=== PATIENT | male | born 1945 | race Caucasian/White ===

== ENCOUNTER 2017-12-07 10:54 | Outpatient (CLI) | payer MEDICARE, BC ==
--- NOTE | 2017-12-07 11:55 | ULT ---
GALLBLADDER ULTRASOUND: HISTORY: Right upper quadrant pain. FINDINGS: Real-time imaging of the right upper quadrant was performed. This shows a normal-appearing gallbladd er. The common duct is 3 mm. The technologist reports a negative ultrasound Forbes's sign. The zehra er is slightly enlarged measuring approximately 19.6 cm in length. No focal lesion is demonstrated. The pancreas is obscured. The right kidney is normal in size and not obstructed. IMPRESSION: Mildly enlarged-appearing liver. No focal lesions. POS: [facility]
== END 2017-12-07 10:55 | disposition home or self-care (01) ==
LOC: SCSULT 10:54
PROVIDERS: ATTEND Family Medicine
DX: R10.11 Right upper quadrant pain (principal); R16.0 Hepatomegaly, not elsewhere classified
CPT/HCPCS: 76705

== ENCOUNTER 2018-01-03 10:10 | Outpatient (CLI) | payer MEDICARE, BC ==
--- NOTE | 2018-01-03 12:08 | RAD ---
TWO VIEWS CHEST: Comparison: 01-29-15, 06-07-16. CT thorax 05-13-14 History: Cough. FINDINGS: Two views of the chest shows a normal sized cardiomediastinal silhouette. There is a 1.2 cm area of n odularity projecting over the right upper lobe. This likely represents a small nodule seen on prior C T, which has enlarged. No pleural effusion is seen. Degenerative changes are seen in the spine. IMPRESSION: Enlarging right upper lobe pulmonary nodule. A CT of the chest with contrast is recommended for [facility] er evaluation. POS: [facility]
== END 2018-01-03 10:11 | disposition home or self-care (01) ==
LOC: BICRAD 10:10
PROVIDERS: ATTEND Family Medicine
DX: R05 Cough (principal); R91.1 Solitary pulmonary nodule
CPT/HCPCS: 71046

== ENCOUNTER 2018-01-03 22:10 | Emergency (ER) | payer MEDICARE, BC ==
[2018-01-03 23:01] LABS: ALT (SGPT) Less than 7 U/L (8-55); AST (SGOT) 15 U/L (5-34); Albumin 3.9 g/dL (3.4-4.8); Alkaline Phosphatase 75 U/L (40-150); Anion Gap 12 mmol/L (10-20); BUN (Urea Nitrogen) 18 mg/dL (8.4-25.7); Bilirubin, Total 2.5 mg/dL (0.2-1.2); CK (CPK) 89 U/L (30-200); Calc. Creatinine Clearance 0 mL/min (70-130); Carbon Dioxide 25 mmol/L (23-31); Chloride 104 mmol/L (98-107); Estimated GFR-MDRD 87; Globulin 3.4 g/dL (2.4-3.5); Glucose 139 mg/dL (83-110); Potassium 3.8 mmol/L (3.5-5.1); Protein, Total 7.3 g/dL (5.8-8.1); Sodium 137 mmol/L (136-145)
--- NOTE | 2018-01-03 23:15 | RAD ---
PORTABLE AP CHEST X-RAY 01/03/18 HISTORY: Shortness of breath. COMPARISON: 01/03/18 at 1033 hours. FINDINGS: Cardiac silhouette is magnified by projection but stable in size. The pulmonary nodule overlying the right upper lobe is again seen but less discrete on this exam. The lungs are otherwise clear. Vascula r calcifications seen in the thoracic aorta. Degenerative changes are noted in the spine. No other in terval change. IMPRESSION: 1. Right upper lobe pulmonary nodule is again seen but less distinct on this exam. CT scan exami nation was recommended on study obtained earlier on today's date. 2. No acute cardiopulmonary process. Chest is overall stable from prior exam. POS: [facility]
[2018-01-03 23:30] LABS: #Basophils 0.1 thou/uL (0.0-0.2); #Eosinphils 0.3 thou/uL (0.0-0.7); #Lymphocytes 0.8 thou/uL (1.20-3.40); #Monocytes 1.1 thou/uL (0.11-0.59); #Neutrophils 8.1 thou/uL (1.40-6.50); %Basophils 0.6 % (0.0-1.0); %Eosinophils 3.1 % (0.0-10.0); %Lymphocytes 8.1 % (21.0-51.0); %Monocytes 10.1 % (0.0-10.0); %Neutrophils 78.1 % (42.0-75.0); Hemoglobin 14.1 g/dL (14.0-18.0); Mean Corpuscular HGB CONC 30.9 g/dL (32.0-36.0); Mean Corpuscular Hemoglobin 25.3 pg (27.0-31.0); Mean Corpuscular Volume 81.8 fL (78.0-98.0); Mean Platelet Volume 8.2 fL (7.4-10.4); Platelet Count 137 thou/uL (130-400); RBC Distribution Width 13.9 % (11.5-14.5); Red Blood Cell (RBC) Count 5.58 mill/uL (4.70-6.10); White Blood Cell (WBC) Count 10.4 thou/uL (4.8-10.8)
[2018-01-04 00:42] LABS: Bilirubin Negative (Negative); Blood, Urine Negative (Negative); Clarity CLEAR (Clear); Glucose, Urine (Dipstick) Negative (Negative); Leukocyte Negative (Negative); Nitrite Negative (Negative); Protein, Urine (Dipstick) Trace mg/dL (Neg-Trace); Specific Gravity, Urine 1.018 (1.002-1.036); pH, Urine 5.5 (5.0-9.0)
== END 2018-01-04 00:36 | disposition home or self-care (01) ==
LOC: ERS 22:10
DX: J06.9 Acute upper respiratory infection, unspecified (principal); I10 Essential (primary) hypertension; Z87.891 Personal history of nicotine dependence; Z79.899 Other long term (current) drug therapy
CPT/HCPCS: 71045; 71046; 80053; 81003; 82550; 83605; 85025; 87040; 87804; 93005; 94660; 96360; 96361; J7620

== ENCOUNTER 2018-01-09 08:17 | Outpatient (CLI) | payer MEDICARE, BC ==
[2018-01-09] MEDS ORDERED: Iopamidol 300 61% 100 ML VIAL FS ONE (09:00)
--- NOTE | 2018-01-09 11:19 | CT ---
CT CHEST WITH IV CONTRAST: HISTORY: Abnormal chest radiograph of 01/03/2018. FINDINGS: There is a questionable nodular enhancement in the region of the posterior inferior right lobe of the thyroid gland measuring about 8 mm. It cannot be said with certainty if this is part of the normal thyroid lobe parenchyma or an enhancing parathyroid adenoma. Enlarged lymph nodes are seen in the mediastinum measuring about 16 mm in the right paratracheal mala on and 12 mm in the subcarinal region. A 13 mm lymph node is also seen in the right hilum. There is an 11 mm peripheral parenchymal lung nodule in the posterior aspect of the right upper lobe. Other smaller lung nodules are seen measuring 3-4 mm in the right upper lobe, 5 mm in the left uppe r lobe, and 6 mm in the right lower lobe. Coronary and aortic calcifications are present without evidence of thoracic aortic aneurysm. No pleu ral or pericardial effusions are identified. There are degenerative changes in the spine. Upper abdominal tomograms demonstrate a 10 cm exophytic cyst arising from the left kidney. IMPRESSION: 1. An 11 mm right upper lobe lung nodule with mediastinal and right hilar lymphadenopathy. Further evaluation with PET scan is recommended. 2. Nonspecific subcentimeter lung nodules. 3. Question right parathyroid adenoma. Correlation with parathyroid hormone levels is recommended. 4. Large left renal cyst. CODE T POS: [facility]
== END 2018-01-09 08:18 | disposition home or self-care (01) ==
LOC: SCSCT 08:17
PROVIDERS: ATTEND Family Medicine
DX: R91.8 Other nonspecific abnormal finding of lung field (principal); R59.0 Localized enlarged lymph nodes; N28.1 Cyst of kidney, acquired; N40.1 Benign prostatic hyperplasia with lower urinary tract symptoms; R31.29 Other microscopic hematuria
CPT/HCPCS: 36415; 71260; 80048; 81001; 87086; 88112

== ENCOUNTER 2019-09-05 10:49 | Observation (INO) | payer MEDICARE, BC, OTHER ==
[2019-09-05 11:41] LABS: #Eosinphils 0.1 thou/uL (0.0-0.7); #Monocytes 0.9 thou/uL (0.11-0.59); #Neutrophils 6.4 thou/uL (1.40-6.50); %Basophils 0.4 % (0.0-1.0); %Eosinophils 0.9 % (0.0-10.0); %Lymphocytes 11.8 % (21.0-51.0); %Monocytes 10.4 % (0.0-10.0); %Neutrophils 76.5 % (42.0-75.0); Mean Corpuscular Hemoglobin 24.8 pg (27.0-31.0); Mean Corpuscular Volume 77.4 fL (78.0-98.0); Mean Platelet Volume 8.8 fL (7.4-10.4); Platelet Count 142 thou/uL (130-400); Red Blood Cell (RBC) Count 4.83 mill/uL (4.70-6.10); White Blood Cell (WBC) Count 8.3 thou/uL (4.8-10.8)
--- NOTE | 2019-09-05 11:48 | RAD ---
EXAM: Single view of the chest HISTORY: Chest pain COMPARISON: 01/03/2018 FINDINGS: Single view of the chest shows an enlarged but stable cardiomediastinal silhouette. Athero sclerotic calcifications are seen in the aorta. There is no evidence of consolidation, mass, or pleural effusion. The bones are unremarkable. IMPRESSION: No evidence of acute cardiopulmonary disease
[2019-09-05 12:06] LABS: ALT (SGPT) Less than 7 U/L (8-55); AST (SGOT) 16 U/L (5-34); Albumin 3.5 g/dL (3.4-4.8); Alkaline Phosphatase 105 U/L (40-110); Anion Gap 12 mmol/L (10-20); BUN (Urea Nitrogen) 14 mg/dL (8.4-25.7); Bilirubin, Total 1.3 mg/dL (0.2-1.2); CK (CPK) 23 U/L (30-200); Calc. Creatinine Clearance 0 mL/min (70-130); Calcium 8.9 mg/dL (7.8-10.44); Carbon Dioxide 23 mmol/L (23-31); Chloride 107 mmol/L (98-107); Estimated GFR-MDRD Greater than 90; Globulin 3.4 g/dL (2.4-3.5); Glucose 125 mg/dL (83-110); Lipase 16 U/L (8-78); Potassium 3.9 mmol/L (3.5-5.1); Protein, Total 6.9 g/dL (5.8-8.1); Sodium 138 mmol/L (136-145)
[2019-09-05] MEDS ORDERED: Aspirin Chewable 81 MG TAB ONE (13:08)
[2019-09-05] MEDS ORDERED: Acetaminophen 325 MG TAB PO PRN (18:44)
[2019-09-05] MEDS ORDERED: hydrALAZINE 20 MG/ML VIAL SLOW IVP PRN (18:53)
[2019-09-05] MEDS ORDERED: Ondansetron ODT 4 MG TAB PO PRN (18:53)
[2019-09-05] MEDS ORDERED: Ondansetron PF 4 MG/2 ML Vial IVP PRN (18:53)
[2019-09-05] MEDS ORDERED: Acetaminophen 500 MG TAB PO PRN (18:53)
[2019-09-05 19:40] LABS: Troponin I 0.016 ng/mL (< 0.028)
[2019-09-05 20:37] VITALS: BMI 36.3
[2019-09-05 21:50] LABS: Troponin I 0.015 ng/mL (< 0.028)
--- NOTE | 2019-09-05 23:13 | HP ---
PRIMARY CARE PROVIDER: Ti Marina MD PRIMARY SLEEPING ROOM CLEANER: Giselle Corcoran MD CHIEF COMPLAINT: Chest pain and shortness of breath. HISTORY OF PRESENT ILLNESS: This is a 73-year-old male, who presented to [facility] complaining of less than 1-day history of central chest pain and pressure with associated shortness of breath, which woke him from sleep at approximately 5:00 a.m. The patient denied any prior similar events and no known history of coronary artery disease. The patient states he has undergone stress testing in the past but is unclear of the year, but states he had normal results. The patient does admit to history of atrial fibrillation, controlled with medication on chronic anticoagulation with Eliquis. The patient states the pain lasted for several minutes and became unbearable at which point, he notified EMS personnel. The patient denied any direct trauma, injury, nausea, vomiting, or diarrhea. The patient denied any fever or chills. The patient does admit to some shortness of breath noticeable over the last 24 to 48 hours. The patient does state that he recently traveled to [place] with his for a vacation at a [employer], which opened recently. The patient states he was wearing his mask per protocol and denied any direct exposure with COVID contacts. The patient denied any prominent cough or purulent sputum. In the emergency room, the patient underwent general evaluation, receiving aspirin 162 mg x1 dose. Initial cardiac enzymes were negative x1 and patient exhibited no acute EKG changes. The patient was referred to the observation unit for further evaluation. PAST MEDICAL HISTORY: 1. Chronic atrial fibrillation, on chronic anticoagulation with Eliquis. 2. Obstructive sleep apnea with nocturnal CPAP x15 years. 3. Hypertension. 4. Colon polyps. PAST SURGICAL HISTORY: 1. Status post hydrocele resection. 2. Status post knee surgery. 3. Status post bilateral hand surgery. 4. Status post colonoscopy with excision of multiple polyps. CURRENT MEDICATIONS: 1. Carvedilol 25 mg 2 tablets p.o. b.i.d. 2. Hydralazine 100 mg p.o. t.i.d. 3. Eliquis 5 mg p.o. b.i.d. 4. Potassium chloride 8 mEq two tablets p.o. daily. 5. Lasix 40 mg p.o. daily. 6. Olmesartan 40 mg p.o. daily. ALLERGIES: NO KNOWN DRUG ALLERGIES. FAMILY HISTORY: Positive for hypertension and coronary artery disease. SOCIAL HISTORY: . Resides in the [facility] area. Retired. Functional of all activities of daily living. No current alcohol, tobacco, or illicit drug use. Quit smoking greater than 10 years prior to this evaluation. REVIEW OF SYSTEMS: CONSTITUTIONAL: Negative for weight loss or gain, ability to conduct usual activities. SKIN: Negative for rash, itching. EYES: Negative for double vision, pain. ENT/MOUTH: Negative for nose bleeding, neck stiffness, pain, tenderness. CARDIOVASCULAR: Negative for palpitations, dyspnea on exertion, orthopnea. RESPIRATORY: Negative for shortness of breath, wheezing, cough, hemoptysis, fever or night sweats. GASTROINTESTINAL: Negative for poor appetite, abdominal pain, heartburn, nausea, vomiting, constipation, or diarrhea. GENITOURINARY: Negative for urgency, frequency, dysuria, nocturia. MUSCULOSKELETAL: Negative for pain, swelling. NEUROLOGIC/PSYCHIATRIC: Negative for anxiety, depression. ALLERGY/IMMUNOLOGIC: Negative for skin rash, bleeding tendency. Otherwise negative except as stated per HPI. PHYSICAL EXAMINATION: VITAL SIGNS: Blood pressure 173/89, pulse 88, respiratory rate 16, temperature 98.4 degrees Fahrenheit, O2 saturation 98% on room air. GENERAL APPEARANCE: This is a 73-year-old male, alert and oriented x3, pleasant, responsive, in no acute distress. HEENT: Pupils are equal, round, reactive to light and accommodation. Extraocular muscles are intact. No scleral icterus. No conjunctival injection. Nares are patent. OP is clear. Teeth in good repair. NECK: Supple. No cervical adenopathy. No thyromegaly. No carotid bruits. No JVD appreciated. Cervical spine with full active and passive range of motion. No meningeal signs noted. CHEST: Diminished breath sounds in the bases bilaterally without wheeze or rhonchi. CARDIOVASCULAR: S1 and S2 with distant heart sounds. Irregular rate and rhythm noted. ABDOMEN: Obese, soft, nontender, and nondistended. Bowel sounds are positive in all 4 quadrants. There is no hepatosplenomegaly. No abdominal bruits. No rebound or guarding appreciated. EXTREMITIES: Warm and dry with fair turgor. No clubbing, cyanosis, or asymmetric edema appreciated. Pulses palpable distally at the dorsalis pedis, posterior tibial, and popliteal arteries bilaterally. Capillary refill less than 2 seconds. NEUROLOGIC: Cranial nerves 2 through 12 are grossly intact. No focal or lateralizing signs appreciated. PERTINENT LABORATORY AND X-RAY FINDINGS: Sodium 138, potassium 3.9, chloride 107, CO2 of 23, BUN 14, creatinine 0.81, glucose 125, calcium 8.9, total bilirubin 1.3, AST 16, ALT less than 7, alkaline phosphatase 105, total CK of 23, lipase 16. CBC showed a white blood cell count 8.3, hemoglobin 12, hematocrit 37, MCV 77, platelet count 142 with 77% neutrophils. Portable chest x-ray dated 09/05/2019, showed no acute cardiopulmonary process. EKG dated 09/05/2019, by my interpretation shows atrial fibrillation with controlled rate in the 80s. Attenuated R-waves noted in the precordial leads. Left axis deviation. No acute ST-T wave changes appreciated. ASSESSMENT AND PLAN: 1. Chest pain. The patient will be observed on the telemetry unit. We will continue serial cardiac biomarkers x3. We will proceed with Cardiolite stress testing in the a.m. after ruling out enzymatically. Check fasting lipid profile in the a.m. Continue aspirin 81 mg daily. 2. Chronic atrial fibrillation. Rate controlled currently. Continue Eliquis 5 mg p.o. b.i.d. Continue Coreg 50 mg p.o. b.i.d. 3. Hypertension. Continue home blood pressure regimen including carvedilol, hydralazine, Lasix, and Olmesartan. Serial blood pressure monitoring. 4. Chronic anticoagulation. Continue Eliquis 5 mg p.o. b.i.d. 5. COVID-19 rule out. Isolation per protocol. COVID-19 PCR pending. 6. Prophylaxis. SCDs while in bed. Pepcid 20 mg p.o. b.i.d. 7. Code status is full. Surrogate medical decision maker is the patient's spouse. Job ID: [id number]
[2019-09-06] MEDS ORDERED: Ketorolac Tromethamine 30 MG/ML VIAL IVP SCH (00:45)
[2019-09-06 05:34] LABS: Cardiac Risk 2.9 (Less than 4.5)
[2019-09-06] MEDS ORDERED: Aspirin 325 mg Enteric Coated Tablet PO SCH (09:00)
[2019-09-06] MEDS ORDERED: Aspirin 81 mg Enteric Coated Tablet PO SCH (09:00)
[2019-09-06 12:19] LABS: SARS-CoV-2 MS2 Positive; SARS-CoV-2 N Gene Negative; SARS-CoV-2 S Gene Negative; SARS-CoV-2 by NAA Not Detected (NotDetected); SARS-CoV-2 orf1ab Negative
[2019-09-06] MEDS ORDERED: Non-Formulary Item 1 EACH (Hydralazine Hcl [Hydralazine Hcl] 100 MG) PO SCH (15:00)
[2019-09-06] MEDS ORDERED: hydrALAZINE 25 MG TAB PO SCH (15:00)
--- NOTE | 2019-09-06 16:53 | NM ---
Exam: Nuclear medicine cardiac stress with EF and wall motion HISTORY: Chest pain and shortness of breath. Chronic atrial fibrillation. COMPARISON: None TECHNIQUE: Patient was ministered 11 mCi of technetium 99m sestamibi for rest imaging and 27 mCi of t echnetium 9M sestamibi for stress imaging. Cardiac gating is performed FINDINGS: Fixed defect involving the base of the septum. No reversibility. TID is 1.01 End-diastolic volume is 102 mL End-systolic volume is 32 mL Cardiac gating and motion: Decreased motion involving the septum. 69% ejection fraction. IMPRESSION: 1. No reversibility. Fixed defect in the face of the septum. 2. 69% ejection fraction
[2019-09-06 17:03] VITALS: BP 141/70; TEMP 98.9
[2019-09-06] MEDS ORDERED: Apixaban 5 MG TAB PO SCH (21:00)
[2019-09-06] MEDS ORDERED: Carvedilol 25 MG TAB PO SCH (21:00)
--- NOTE | 2019-09-06 21:36 | DIS ---
DATE OF ADMISSION: 09/05/2019 DATE OF DISCHARGE: 09/06/2019 DISCHARGE DIAGNOSES: 1. Chest wall pain. 2. Chronic atrial fibrillation, rate controlled on chronic anticoagulation with Eliquis. 3. Hypertension, stable. 4. COVID-19 ruled out. CONSULTATIONS: None. PERTINENT LABORATORY AND X-RAY FINDINGS: Troponin I negative x3. Total cholesterol 104, triglycerides 69, HDL 36, LDL 54. Lipase 16. CBC showed a hemoglobin of 12, hematocrit 37, MCV 77. COVID-19 PCR not detected, 09/05/2019. Portable chest x-ray dated 09/05/2019, showed no acute cardiopulmonary process. Cardiolite stress test dated 09/06/2019, showed no reversible ischemia. Fixed defect in the face of the septum. 69% ejection fraction. HOSPITAL COURSE: The patient was observed on the telemetry unit after initially presenting with chest pain and shortness of breath. The patient underwent serial cardiac biomarkers which were negative x3, proceeding to Cardiolite stress testing showing no reversible ischemia and likely fixed defect at the septum. Calculated ejection fraction of 69%. The patient was ruled out for COVID-19 by PCR as stated previously. Telemetry monitoring showed atrial fibrillation with controlled ventricular response. I have examined the patient at the time of discharge and discussed followup instructions. The patient verbalized understanding, agreement ready for discharge on 09/06/2019. DISCHARGE MEDICATIONS: 1. Enteric-coated aspirin 81 mg p.o. daily. 2. Eliquis 5 mg p.o. b.i.d. 3. Carvedilol 50 mg p.o. b.i.d. 4. Flonase 2 sprays in each naris daily. 5. Lasix 40 mg p.o. daily. 6. Hydralazine 100 mg p.o. t.i.d. 7. Olmesartan 40 mg p.o. daily. 8. Potassium chloride 60 mEq p.o. daily. 9. Multivitamin 1 tablet p.o. daily. FOLLOWUP: The patient will follow up with Dr. Ti Marina within 7 days of discharge. The patient may follow up with Dr. Giselle Corcoran and to call his office for appointment time and date. CONDITION ON DISCHARGE: Stable. ACTIVITY: Ad-geremias. DIET: Heart healthy. CODE STATUS: Full. DISPOSITION: Home, 09/06/2019. Job ID: [id number]
[2019-09-07] MEDS ORDERED: Losartan 25 MG TAB PO SCH (09:00)
[2019-09-07] MEDS ORDERED: Furosemide 40 MG TAB PO SCH (09:00)
[2019-09-07] MEDS ORDERED: Non-Formulary Item 1 EACH (Olmesartan Medoxomil [Olmesartan Medoxomil] 40 MG) PO SCH (09:00)
[2019-09-07] MEDS ORDERED: Potassium Chloride 8 MEQ TAB PO SCH (12:00)
[2019-09-07] MEDS ORDERED: POTASSIUM CHLORIDE 16 MEQ PO SCH (12:00)
== END 2019-09-06 18:24 | disposition home or self-care (01) ==
LOC: ERS 10:49 → 2SW 13:25
PROVIDERS: ADMIT Family Medicine; ATTEND Family Medicine
DX: I48.20 Chronic atrial fibrillation, unspecified (principal); I10 Essential (primary) hypertension; G47.33 Obstructive sleep apnea (adult) (pediatric); Z79.01 Long term (current) use of anticoagulants; Z79.899 Other long term (current) drug therapy; Z87.891 Personal history of nicotine dependence; Z11.59 Encounter for screening for other viral diseases; Z20.828 Contact with and (suspected) exposure to other viral communicable diseases
CPT/HCPCS: 71045; 78452; 80053; 80061; 82550; 83690; 84484 ×2; 85025; 93005; 93017; 94760; 96374; 99285; A9500; G0378 ×3; U0003; 36415; 87635; J0153; J1885

== ENCOUNTER 2019-11-12 12:37 | Inpatient (IN) | payer MEDICARE, BC, OTHER ==
[2019-11-12 13:31] LABS: #Eosinphils 0.1 thou/uL (0.0-0.7); #Monocytes 0.8 thou/uL (0.11-0.59); #Neutrophils 5.5 thou/uL (1.40-6.50); %Basophils 0.4 % (0.0-1.0); %Monocytes 10.5 % (0.0-10.0); %Neutrophils 73.2 % (42.0-75.0); Hemoglobin 10.4 g/dL (14.0-18.0); Mean Corpuscular HGB CONC 30.5 g/dL (32.0-36.0); Mean Corpuscular Hemoglobin 23.4 pg (27.0-31.0); Mean Corpuscular Volume 76.8 fL (78.0-98.0); Mean Platelet Volume 7.7 fL (7.4-10.4); Platelet Count 335 thou/uL (130-400); RBC Distribution Width 14.9 % (11.5-14.5); Red Blood Cell (RBC) Count 4.43 mill/uL (4.70-6.10); White Blood Cell (WBC) Count 7.5 thou/uL (4.8-10.8)
[2019-11-12 13:53] LABS: ALT (SGPT) 9 U/L (8-55); AST (SGOT) 23 U/L (5-34); Albumin 3.2 g/dL (3.4-4.8); Alkaline Phosphatase 106 U/L (40-110); Anion Gap 13 mmol/L (10-20); BUN (Urea Nitrogen) 24 mg/dL (8.4-25.7); Bilirubin, Total 0.6 mg/dL (0.2-1.2); Calc. Creatinine Clearance 0 mL/min (70-130); Calcium 8.6 mg/dL (7.8-10.44); Carbon Dioxide 26 mmol/L (23-31); Chloride 105 mmol/L (98-107); Estimated GFR-MDRD 79; Globulin 3.8 g/dL (2.4-3.5); Glucose 137 mg/dL (83-110); Potassium 4.2 mmol/L (3.5-5.1); Sodium 140 mmol/L (136-145)
--- NOTE | 2019-11-12 13:56 | RAD ---
EXAM: Chest 2 views: HISTORY: Dyspnea COMPARISON: 09/05/2019; chest CT 01/09/2018 FINDINGS: There is an enlarged but stable cardiomediastinal silhouette. There is a small left pleural effusion with adjacent atelectasis. A small right pleural effusion also be present. There is a 1.2 cm nodule projecting over the right upper lobe which is well-circumscribed. Degenerative changes are seen in t he spine. IMPRESSION: 1. Bilateral pleural effusions 2. Right upper lobe pulmonary nodule
[2019-11-12] MEDS ORDERED: Furosemide 40 MG TAB ONE (14:09)
[2019-11-12] MEDS ORDERED: Diltiazem 125 MG/25 ML ONE (14:09)
[2019-11-12] MEDS ORDERED: Furosemide 40 MG/4 ML VIAL ONE (14:11)
[2019-11-12 14:30] LABS: INR-International Normal Ratio 1.7; Prothrombin Time 20.3 sec (12.0-14.7)
[2019-11-12 14:43] LABS: PTT 63.3 sec (22.9-36.1)
[2019-11-12] MEDS ORDERED: Ondansetron ODT 4 MG TAB PO PRN (15:15)
[2019-11-12] MEDS ORDERED: Calcium Carbonate 500 MG ChewTAB PO PRN (15:15)
[2019-11-12] MEDS ORDERED: Acetaminophen 325 MG TAB PO PRN (15:15)
[2019-11-12 17:50] VITALS: BMI 34.5
--- NOTE | 2019-11-12 18:48 | PDOC.HHP ---
Hospitalist HPI - History of Present Illness shortness of breath History of Present Illness: This is a 73 year old male with past medical history of hypertension, afib, hypercholesterolemia who presents to the ER with shortness of breath. The patient reports worsening shortness of breath for hte past few weeks. He has had to stop frequently while walking to catch his breath. The last two nights he has been unable to lay flat due to worsening shortness of breath. He has been sleeping on one to two pillows. He has been compliant with his lasix daily. He denies drinking excess fluid, or excess salt intake. He denies chest pain, palpitations, cough, fevers, chills. He went to Dr. Corcoran's office and did an X ray which showed left sided pleural effusion and sent him to the hospital. The patient is not on oxygen at home. In ER he was 88% on room air and was placed on oxygen. ED Course: The patient presented to the ER with normal vitals except for mild tachycardia. EKG showed atrial fibrillation with RVR. THe patient was given IV diltiazem and rate was controlled. Chest Xray showed left sided pleural effusion. The patient was given 40 mg IV lasix and admitted for further workup. Hospitalist ROS - Review of Systems Constitutional: denies: fever, chills ENT: denies: ear pain, ear discharge Respiratory: reports: cough, shortness of breath. denies: dry Cardiovascular: reports: chest pain, palpitations. denies: orthopnea Gastrointestinal: denies: nausea, vomiting Musculoskeletal: denies: neck pain Hospitalist History - Past Medical History Other Medical History: Hypertension Atrial fibrillation Hypercholesterolemia - Past Surgical History Other Surgical History: Biulateral arthroscopic knee repair - Family History Family History: reports: cardiac disorder (mother and father) - Social History Smoking Status: Former smoker (quit in 1983.) Alcohol: reports: Occassional Drugs: reports: none Living Situation: With Family - Exam General Appearance: NAD, awake alert Eye: PERRL, anicteric sclera ENT: normocephalic atraumatic, no oropharyngeal lesions Neck: supple, symmetric, no JVD Heart: RRR, no murmur, no gallops, no rubs Respiratory - other findings: diffusely diminished breath sounds Gastrointestinal: soft, non-tender, normal bowel sounds Gastrointestinal - other findings: abdomen distended Extremities: 2+ LE edema Skin: normal turgor, no lesions, no rashes Neurological: cranial nerve grossly intact, normal sensation to touch, no focal deficits, no new deficit Hospitalist Results - Labs Result Diagrams: 11/12/19 13:23 11/12/19 13:23 Lab results: WBC 7.5 thou/uL (4.8-10.8) 11/12/19 13:23 Hgb 10.4 g/dL (14.0-18.0) L 11/12/19 13:23 Hct 34.0 % (42.0-52.0) L 11/12/19 13:23 MCV 76.8 fL (78.0-98.0) L 11/12/19 13:23 Plt Count 335 thou/uL (130-400) 11/12/19 13:23 Neutrophils % 73.2 % (42.0-75.0) 11/12/19 13:23 Sodium 140 mmol/L (136-145) 11/12/19 13:23 Potassium 4.2 mmol/L (3.5-5.1) 11/12/19 13:23 Chloride 105 mmol/L (98-107) 11/12/19 13:23 Carbon Dioxide 26 mmol/L (23-31) 11/12/19 13:23 BUN 24 mg/dL (8.4-25.7) 11/12/19 13:23 Creatinine 0.93 mg/dL (0.7-1.3) 11/12/19 13:23 Glucose 137 mg/dL (83-110) H 11/12/19 13:23 Calcium 8.6 mg/dL (7.8-10.44) 11/12/19 13:23 Total Bilirubin 0.6 mg/dL (0.2-1.2) 11/12/19 13:23 AST 23 U/L (5-34) 11/12/19 13:23 ALT 9 U/L (8-55) 11/12/19 13:23 Alkaline Phosphatase 106 U/L (40-110) 11/12/19 13:23 Troponin I 0.010 ng/mL (< 0.028) 11/12/19 13:23 B-Natriuretic Peptide 147.4 pg/mL (0-100) H 11/12/19 13:23 Serum Total Protein 7.0 g/dL (5.8-8.1) 11/12/19 13:23 Albumin 3.2 g/dL (3.4-4.8) L 11/12/19 13:23 - EKG Interpretation EKG: afib with RVR Hospitalist H&P A/P - Plan Plan: This is a 73 year old male patient with hypertension, atrial fibrillation who presents to the ER with shortness of breath/orthopnea Acute respiratory insufficiency secondary to pulmonary edema and left sided pleural effusion - started IV lasix 40 mg IV bid - repeat chest Xray in morning, consider pulm consult if no improvement - ECHO showed EF 60% with small pericardial effusion - trend troponin, monitor on telemetry AFib with RVR - rate controlled - continue eliquis and coreg Hypertension - continue coreg Anemia - Hb 10, stable - check iron panel in am
--- NOTE | 2019-11-12 18:57 | PDOC.EVN ---
Event Note - Event Note Event Note: The patient would like to be a DNR/DNI and HCP is his per patient. DIscussed for about 30 minutes
[2019-11-12] MEDS ORDERED: Furosemide 40 MG/4 ML VIAL SLOW IVP SCH (20:00)
[2019-11-12] MEDS: Carvedilol 25 MG TAB PO SCH (20:35)
[2019-11-12] MEDS: Apixaban 5 MG TAB PO SCH (20:35)
[2019-11-13 04:52] LABS: Hemoglobin 9.5 g/dL (14.0-18.0); Mean Corpuscular HGB CONC 30.4 g/dL (32.0-36.0); Mean Corpuscular Hemoglobin 23.3 pg (27.0-31.0); Mean Corpuscular Volume 76.8 fL (78.0-98.0); Mean Platelet Volume 7.5 fL (7.4-10.4); Platelet Count 302 thou/uL (130-400); RBC Distribution Width 14.7 % (11.5-14.5); Red Blood Cell (RBC) Count 4.09 mill/uL (4.70-6.10); White Blood Cell (WBC) Count 7.4 thou/uL (4.8-10.8)
[2019-11-13 05:09] LABS: ALT (SGPT) 7 U/L (8-55); AST (SGOT) 19 U/L (5-34); Albumin 3.1 g/dL (3.4-4.8); Alkaline Phosphatase 97 U/L (40-110); Anion Gap 14 mmol/L (10-20); BUN (Urea Nitrogen) 27 mg/dL (8.4-25.7); Bilirubin, Total 0.6 mg/dL (0.2-1.2); Calc. Creatinine Clearance 92 mL/min (70-130); Calcium 8.4 mg/dL (7.8-10.44); Carbon Dioxide 25 mmol/L (23-31); Chloride 104 mmol/L (98-107); Estimated GFR-MDRD 72; Globulin 3.5 g/dL (2.4-3.5); Glucose 113 mg/dL (83-110); Iron 24 ug/dL (65-175); Iron Binding Capacity, Total 208 mcg/dL (261-462); Potassium 3.7 mmol/L (3.5-5.1); Protein, Total 6.6 g/dL (5.8-8.1); Sodium 139 mmol/L (136-145)
[2019-11-13] MEDS: Furosemide 40 MG/4 ML VIAL SLOW IVP SCH ×2 (05:30→14:43)
--- NOTE | 2019-11-13 08:32 | RAD ---
CHEST 2 VIEWS: HISTORY: Left pleural effusion. COMPARISON: 11/12/2019. FINDINGS: Stable bilateral pleural effusions larger on the left side. Minimal cardiomegaly. Stable nodular de nsity projected over the right upper chest. Prior CT examination 01/09/2018 demonstrated a 1.1 cm di ameter nodule in the posterior aspect of the right upper chest. This appears stable. IMPRESSION: Bilateral pleural effusions greater on the left side but stable. This is associated with minimal car diomegaly. Stable right upper lobe circumscribed pulmonary nodule. POS: [facility]
[2019-11-13] MEDS: Carvedilol 25 MG TAB PO SCH ×2 (09:56→20:51)
[2019-11-13] MEDS: Apixaban 5 MG TAB PO SCH ×2 (09:57→20:51)
[2019-11-13] MEDS: Losartan 25 MG TAB PO SCH (09:57)
[2019-11-13] MEDS: Vit A,C & E/Lutein/Minerals Tablet PO SCH (09:57)
[2019-11-13] MEDS: Aspirin 81 mg Enteric Coated Tablet PO SCH (12:16)
[2019-11-13 12:55] LABS: SARS-CoV-2 MS2 Positive; SARS-CoV-2 N Gene Negative; SARS-CoV-2 S Gene Negative; SARS-CoV-2 by NAA Not Detected (NotDetected); SARS-CoV-2 orf1ab Negative
--- NOTE | 2019-11-13 16:33 | PDOC.HOSPP ---
- Subjective Encounter Date: 11/13/19 Encounter Time: 09:00 Subjective: The patient feels much better compared to yesterday. His SOB has improved. He denies chest pain. He denies abdominal pain He feels his swelling has improved some and he is able to walk farther than yesterday. He is off oxygen per nursing, but upon ambulation heart rate was 100- 120 - Objective Vital Signs & Weight: Vital Signs (12 hours) Temp Pulse Resp BP Pulse Ox 11/13/19 16:16 97.4 F L 104 H 20 132/77 96 11/13/19 11:50 97.9 F 97 24 H 117/71 95 11/13/19 07:51 97.4 F L 104 H 24 H 137/78 100 Weight Weight 222 lb 12.8 oz I&O: 11/12/19 11/13/19 11/14/19 06:59 06:59 06:59 Intake Total 480 Output Total 650 490 Balance -650 -10 Result Diagrams: 11/13/19 04:27 11/13/19 04:27 Hospitalist ROS - Review of Systems Constitutional: denies: fever, chills - Medication Medications: Active Medications Generic Name Dose Route Start Last Admin Trade Name Freq PRN Reason Stop Dose Admin Apixaban 5 mg 11/12/19 21:00 11/13/19 09:57 Eliquis PO 5 mg BID VANNESSA Administration Aspirin 81 mg 11/13/19 12:00 11/13/19 12:16 Ecotrin PO 81 mg 1200 VANNESSA Administration Carvedilol 50 mg 11/12/19 21:00 11/13/19 09:56 Coreg PO 50 mg BID VANNESSA Administration Furosemide 40 mg 11/13/19 06:00 11/13/19 14:43 Lasix SLOW IVP 40 mg 0600,1400 VANNESSA Administration Losartan Potassium 100 mg 11/13/19 09:00 11/13/19 09:57 Cozaar PO 100 mg DAILY VANNESSA Administration Multivitamins/Minerals 1 tab 11/13/19 09:00 11/13/19 09:57 Ocuvite With Lutein PO 1 tab DAILY VANNESSA Administration - Exam General Appearance: NAD, awake alert Eye: PERRL, anicteric sclera ENT: normocephalic atraumatic, no oropharyngeal lesions Neck: no JVD Heart: RRR, no murmur, no gallops, no rubs Respiratory - other findings: diminished breath sounds diffusely Gastrointestinal: soft, non-tender, non-distended, normal bowel sounds Extremities: no cyanosis, no clubbing, 1+ LE edema Hosp A/P - Plan Chest X ray 11/12: bilateral pleural effusions, worst on the left. RUL pulmonary nodule This is a 73 year old male patient with hypertension, atrial fibrillation who presents to the ER with shortness of breath/orthopnea Acute respiratory insufficiency secondary to pulmonary edema and left sided pleural effusion - started IV lasix 40 mg IV bid, will continue for now, patient has been weaned off oxygen. ECHO done 11/[address] Corcoran office showed small pericardial effusion, no diastolic dysfunction -troponin negative times three - cardiology is following - switch to inpatient given persistent tachycardia and need for IV diuresis RUL pulmonary nodule - 1.1 cm nodule noted, stable AFib with RVR - rate controlled - continue eliquis and coreg Hypertension - continue coreg Anemia of chronic disease - Hb 10, stable. Iron panel consistent with AOCD
[2019-11-13] MEDS ORDERED: Bisacodyl 10 MG SUPP PR PRN (17:09)
[2019-11-13] MEDS ORDERED: Potassium Chloride 20 MEQ TAB PO SCH (17:45)
[2019-11-13 18:39] LABS: Bilirubin Negative (Negative); Blood, Urine Negative (Negative); Clarity Clear (Clear); Glucose, Urine (Dipstick) Normal (Negative); Ketone, Urine Negative (Negative); Leukocyte Negative Leu/uL (Negative); Nitrite Negative (Negative); Protein, Urine (Dipstick) Negative (Neg-Trace); Specific Gravity, Urine 1.009 (1.002-1.036); Urobilinogen Normal mg/dL (Less than 2); pH, Urine 5.5 (5.0-9.0)
--- NOTE | 2019-11-13 18:49 | PRG ---
DATE OF SERVICE: 11/13/2019 SUBJECTIVE: Mr. Macedo is feeling better, had a good diuresis. He is much less short of breath. OBJECTIVE: VITAL SIGNS: Blood pressure is 132/77, pulse 90-100, it is irregular. LUNGS: Decreased breath sounds left base. CARDIAC: Irregularly irregular. EXTREMITIES: Moderate edema. ABDOMEN: Soft, nontender. ASSESSMENT: Congestive heart failure, diastolic; acute on chronic, improved. PLAN: 1. Give additional furosemide tonight. 2. Add spironolactone tomorrow. 3. Hopefully home tomorrow if doing well. Job ID: [id number]
[2019-11-13] MEDS ORDERED: Furosemide 40 MG/4 ML VIAL SLOW IVP SCH (20:00)
--- NOTE | 2019-11-13 20:11 | CON ---
DATE OF CONSULTATION: 11/13/2019 HISTORY OF PRESENT ILLNESS: Mr. Macedo is a 73-year-old male, who has pleural effusion, left side greater than right. I was consulted by Dr. Corcoran. Apparently, his echocardiogram shows significant diastolic dysfunction. He has been treated with diuretics since he is admitted and says he feels dramatically better. PAST MEDICAL HISTORY: Remarkable for; 1. Hypertension. 2. History of atrial fibrillation. 3. History of lipid disorder. 4. History of bilateral knee surgery. FAMILY HISTORY: Negative for lung disease in early age. SOCIAL HISTORY: He smoked until 1983. He is not a daily drinker. REVIEW OF SYSTEMS: Ten-point is otherwise negative. PHYSICAL EXAMINATION: GENERAL: This is a very pleasant gentleman, in no distress. VITAL SIGNS: He is afebrile. Heart rate is 104, respiratory rate is 20, oximetry is 96% on room air, blood pressure is 132/77. HEENT: Pupils are equal. Sclerae are anicteric. NECK: Supple. No lymphadenopathy. LUNGS: Remarkable for decreased breath sounds at his left base. HEART: Regular rhythm. No S3. ABDOMEN: Soft and nontender. EXTREMITIES: Without clubbing, cyanosis, or edema. NEURO: Nonfocal. LABORATORY DATA: White count 7.4, hemoglobin 9.5, platelets 302,000. Electrolytes are normal. Creatinine is 1.01. Iron studies are suggestive of chronic disease with iron of 24 and TIBC of 208. Albumin is 3.1. IMPRESSION AND PLAN: Pleural effusion, most likely secondary to diastolic dysfunction. Given that his albumin is lowish, urinalysis just to make sure proteinuria. I do not feel thoracentesis is indicated at this point in time. I will be happy to follow him as an outpatient to see him again in 3 to 4 weeks to make sure his effusion is improving. Clinically, he is improving, so I do not feel there is any indication for thoracentesis at this point in time. This is a 50 min visit with greater than 50% of time spent on unit with coordination of care. Job ID: [id number] [facility]
[2019-11-14 05:36] LABS: Anion Gap 16 mmol/L (10-20); BUN (Urea Nitrogen) 27 mg/dL (8.4-25.7); Calc. Creatinine Clearance 95 mL/min (70-130); Calcium 8.2 mg/dL (7.8-10.44); Carbon Dioxide 26 mmol/L (23-31); Chloride 103 mmol/L (98-107); Estimated GFR-MDRD 76; Glucose 117 mg/dL (83-110); Potassium 3.7 mmol/L (3.5-5.1); Sodium 141 mmol/L (136-145)
[2019-11-14] MEDS: Furosemide 40 MG/4 ML VIAL SLOW IVP SCH (05:40)
[2019-11-14] MEDS ORDERED: Spironolactone 25 MG TAB PO SCH (08:00)
[2019-11-14] MEDS: Losartan 25 MG TAB PO SCH (08:07)
[2019-11-14] MEDS: Vit A,C & E/Lutein/Minerals Tablet PO SCH (08:07)
[2019-11-14] MEDS: Apixaban 5 MG TAB PO SCH (08:07)
[2019-11-14] MEDS: Carvedilol 25 MG TAB PO SCH (08:08)
--- NOTE | 2019-11-14 10:47 | PRG ---
DATE OF SERVICE: 11/14/2019 SUBJECTIVE: Mr. Macedo is doing well. He said he put out a lot of urine last night and less urine output this morning. He has been sitting in the chair most of the day. OBJECTIVE: VITAL SIGNS: Blood pressure 107/70, pulse 100, it is irregular, it is atrial fibrillation, which is chronic. ABDOMEN: Soft, nontender. EXTREMITIES: Still moderate edema. LABORATORY DATA: Creatinine is 0.96, potassium 3.7. ASSESSMENT: 1. Congestive heart failure, diastolic, acute on chronic improving, but still volume overloaded. 2. Pleural effusion. 3. Chronic atrial fibrillation. PLAN: 1. Give additional dose of Lasix this afternoon. 2. Elevate his feet to try to mobilize the edema from his legs into his intravascular system. 3. When he goes home, give him furosemide 40 mg twice a day. 4. Spironolactone 25 mg a day. 5. Potassium 10 mEq a day. 6. Recommend he follow up with us in the office with the basic metabolic panel in 2 weeks. 7. The patient can be released home this afternoon. Job ID: [id number]
[2019-11-14 11:51] VITALS: BP 115/57; TEMP 97.6
[2019-11-14] MEDS ORDERED: Potassium Chloride 20 MEQ TAB PO SCH (12:00)
[2019-11-14] MEDS ORDERED: Furosemide 40 MG/4 ML VIAL SLOW IVP SCH (12:00)
[2019-11-14] MEDS: Aspirin 81 mg Enteric Coated Tablet PO SCH (12:11)
--- NOTE | 2019-11-14 12:49 | PQF ---
CLINICAL DOCUMENTATION CLARIFICATION FORM: Dear Dr. Winters Date: 11/14/19 Please exercise your independent, professional judgment in responding to the clarification form. Clinical indicators are provided on the bottom of this form for your review. Please check appropriate box(es): HEART FAILURE: A. ACUITY [ X ] Acute [ ] Acute on Chronic [ ] Chronic B. TYPE: [ ] Systolic / HFrEF [ X] Diastolic / HFpEF [ ] Combined Systolic / Diastolic [ ] Hypertensive Heart Disease [ ] Other diagnosis [ ] Unable to determine In addition, please specify: Present on Admission (POA): [ X ] Yes [ ] No [ ] Unable to determine For continuity of documentation, please document condition throughout progress notes and discharge summary. Thank You. To be completed by CDI/Coding staff for physician review: ER NOTE: "SHORTNESS OF BREATH; BILATERAL LOWER EXREMITY EDEMA" H&P ([facility]): "PULMONARY EDEMA AND LEFT SIDED PLEURAL EFFUSION" PROGRESS NOTE 11/12 ([facility]): "CONGESTIVE HEART FAILURE, DIASTOLIC, ACUTE ON CHRONIC." PULSE 108 RR 24 BNP 11/11: 147.4 RISKS: AFIB WITH RVR (H&P - [facility]) HYPERTENSION (H&P- [facility]) H/O CHF (ER NOTE) TREATMENT: IV LASIX (ER NOTE -11/13) CARDIOLOGY CONSULT CARDIAC MONITORING COREG (11/11-PRESENT) ALDACTONE (START 11/13) PO LASIX (START 11/14) CHEST XRAY 11/11 & 11/12 CDS Signature: Fior Card RN Phone #: [phone] Date: 11/14/19 This is a permanent part of the Medical Record [facility]
--- NOTE | 2019-11-14 14:20 | RAD ---
PORTABLE CHEST ONE VIEW: 11/14/19 at 1:34 p.m. HISTORY: Follow-up pleural effusion. COMPARISON: Previous day. FINDINGS: The heart is enlarged. Bilateral pleural effusions, left larger than right are stable. No pneumothora marry are seen. The heart is enlarged. Nodular density in the right upper lobe is stable. IMPRESSION: Stable exam. POS: OFF
--- NOTE | 2019-11-14 19:55 | DIS ---
DATE OF ADMISSION: 11/13/2019 DATE OF DISCHARGE: 11/14/2019 DISCHARGE DIAGNOSES: 1. Acute diastolic heart failure with left-sided pleural effusion and pulmonary edema. 2. Acute hypoxic respiratory failure secondary to acute systolic heart failure. CONSULTATIONS: 1. Cardiology with Dr. Giselle Corcoran MD. 2. Valentín Nguyen MD, with Pulmonary. PROCEDURES: None. BRIEF HISTORY OF PRESENT ILLNESS: This is a 73-year-old male with past medical history of hypertension, atrial fibrillation, hypercholesterolemia, who presented to the emergency room with shortness of breath for the past few weeks. He also reported worsening orthopnea and worsening dyspnea on exertion. He was unable to lay flat. He saw Dr. Corcoran in clinic, who did an echocardiogram, which showed EF of 60% with a small pericardial effusion. His O2 saturation was 88% on room air. He was admitted for further workup. When he presented to the emergency room, he was also in atrial fibrillation with RVR. He was given IV diltiazem with improvement in his rate. HOSPITAL COURSE: 1. Acute diastolic heart failure with pulmonary edema and left-sided pleural effusion: The patient was started on IV Lasix 40 mg IV b.i.d. He was weaned off his oxygen and came down to room air at the time of discharge. The patient was able to lay flat at the time of discharge. His troponins were negative. He was seen by Cardiology, Dr. Corcoran and he will be discharged with Lasix 40 mg twice daily. He is advised to follow a 2 L fluid restriction. He should get a repeat BMP in [address] Nguyen also saw him from Pulmonary in consultation for the left-sided pleural effusion and did not think he needed a thoracentesis at this time. I advised him to get a repeat chest x-ray in a week and follow up with Dr. Nguyen in 3 to 4 weeks. The patient was also started on spironolactone 25 mg [address] daily by Dr. Corcoran for his heart failure. Follow up with the PCP with additional blood pressure titration. 2. Right upper lobe pulmonary nodule: The patient had a 1.1-cm pulmonary nodule noted on his chest x-ray. This should be followed up as an outpatient. Currently, the size is stable. 3. Hypertension/atrial fibrillation: The patient was continued on his Eliquis and Coreg. He was started on spironolactone with blood pressures ranging from 107 to 115 systolic. DISCHARGE PHYSICAL EXAMINATION: VITAL SIGNS: Temperature 97.6, heart rate 88, respiratory rate 20, O2 saturation 97% on room air, and blood pressure 115/57. GENERAL: The patient is alert, awake, and oriented x3. CVS: There is no JVD. The patient has no orthopnea while lying flat. LUNGS: Slightly diminished at the bases. No crackles. He has no murmurs, rubs , or gallops. ABDOMEN: Nondistended, nontender. EXTREMITIES: 1 to 2+ pitting edema. PERTINENT LABORATORY DATA: CBC on 11/12: White count 7.4, hemoglobin 9.5, hematocrit 31.4, platelet count 302. BMP on 11/13: Normal. Iron panel on 11/12: Iron 24, TIBC 208, iron sat 12, ferritin 205. LFTs on 11/12: Normal. Troponin I: Negative x3. BNP on 11/11: 147. UA on 11/12: Negative. COVID serology on 11/11: Negative. PERTINENT IMAGING: Chest x-ray on 11/13: Shows bilateral pleural effusions, left larger than right. Nodular density in the right upper lobe. Chest x-ray on 11/12: Bilateral pleural effusions, greater on the left. Stable right upper lobe circumscribed pulmonary nodule. DISCHARGE CONDITION: Stable. ACTIVITY: As tolerated. DIET: Heart-healthy diet with a 2 L fluid restriction. DISCHARGE MEDICATIONS: 1. Furosemide 40 mg p.o. b.i.d. 2. Lasix 25 mg p.o. q.a.m. 3. Coreg 50 mg p.o. b.i.d. 4. Olmesartan 40 mg p.o. daily. 5. Aspirin 81 mg p.o. daily. 6. Eliquis 5 mg p.o. b.i.d. 7. Ocular vitamins for macular degeneration. DISCHARGE INSTRUCTIONS: The patient needs to get a repeat BMP in 2 weeks and follow 2L fluid restriction. He should get a repeat chest x-ray in a week and consider follow up with Dr. Nguyen in 3 to 4 weeks for his left-sided pleural effusion. His hydralazine was discontinued since blood pressure was controlled without it. Spironolactone was initiated and lasix increased to 40 mg bid. Also, get a repeat CT chest in 6 months for further evaluation of his pulmonary nodule. Job ID: [id number] MTDD
[2019-11-15] MEDS ORDERED: Potassium Chloride 10 MEQ TAB PO SCH (08:00)
[2019-11-15] MEDS ORDERED: Furosemide 40 MG TAB PO SCH (09:00)
== END 2019-11-14 16:14 | disposition home or self-care (01) | DRG 291 ==
LOC: ERS 12:37 → 2SW 15:15 → OBSVTOIN 11-13 16:32
PROVIDERS: ADMIT Internal Medicine; ATTEND Internal Medicine
DX: I11.0 Hypertensive heart disease with heart failure (principal); I50.31 Acute diastolic (congestive) heart failure; J96.01 Acute respiratory failure with hypoxia; I31.3 Pericardial effusion (noninflammatory); I48.20 Chronic atrial fibrillation, unspecified; Z20.828 Contact with and (suspected) exposure to other viral communicable diseases; R91.1 Solitary pulmonary nodule; D63.8 Anemia in other chronic diseases classified elsewhere; E78.00 Pure hypercholesterolemia, unspecified; Z87.891 Personal history of nicotine dependence; Z98.890 Other specified postprocedural states
CPT/HCPCS: 36415; 71045; 71046; 80048; 80053; 81003; 82728; 83540; 83550; 83880; 84484; 85025; 85027; 85610; 85730; 87635; 93005; 94760; 96374; 96375; 96376; G0378; J1940; U0003

== ENCOUNTER 2019-11-20 09:36 | Outpatient (CLI) | payer MEDICARE, BC ==
--- NOTE | 2019-11-20 10:11 | RAD ---
XR Chest Pa Lat STANDARD HISTORY: Pleural effusion COMPARISON: 11/14/2019 and 11/13/2019. FINDINGS: The heart is enlarged. A moderate left-sided pleural effusion is seen slightly larger than on the previous study. A small right pleural effusion is noted. The nodular density in the right upper chest also seen on CT scan of 01/09/2018 is stable. There are degenerative changes in the spine . IMPRESSION: Mild interval increase in size of the left pleural effusion since 11/14/2019.
== END 2019-11-20 09:37 | disposition home or self-care (01) ==
LOC: BICRAD 09:36
PROVIDERS: ATTEND Nurse Practitioner Family
DX: J90 Pleural effusion, not elsewhere classified (principal)
CPT/HCPCS: 36415; 71046; 80048; 83880

== ENCOUNTER 2019-12-11 11:14 | Outpatient (CLI) | payer MEDICARE, BC ==
--- NOTE | 2019-12-11 14:25 | RAD ---
TWO VIEW CHEST: INDICATION: Shortness of breath. COMPARISON: 11/20/2019. FINDINGS: Left effusion and left basilar atelectasis and/or consolidation is again seen opacifying the left kaity g base. This is stable from 11/20/2019. Evidence of small right effusion is also unchanged. Upper lung valle remain clear and stable. The small nodular density in the right upper lung noted p reviously is unchanged. IMPRESSION: Bilateral effusions, larger on the left, with associated left basilar atelectasis and/or infiltrate. Findings are stable from prior exam. POS: AGW
== END 2019-12-11 11:15 | disposition home or self-care (01) ==
LOC: BICRAD 11:14
PROVIDERS: ATTEND Internal Medicine Critical Care Medicine
DX: R06.00 Dyspnea, unspecified (principal); J90 Pleural effusion, not elsewhere classified; J98.11 Atelectasis
CPT/HCPCS: 36415; 71046; 80048

== ENCOUNTER 2019-12-12 12:27 | Outpatient (CLI) | payer MEDICARE, BC ==
--- NOTE | 2019-12-12 17:27 | CT ---
CT HEAD WITHOUT CONTRAST: History: Mental status change. Comparison: None FINDINGS: Mild cortical volume loss. Mild chronic ischemic white matter changes. No mass or hemorrhage. No evid ence of infarct or edema. There is increased CSF density in the anterior right middle cranial fossa. This measures approximatel y 2.8 cm AP dimension and appears to produce mild mass effect on the anterior temporal lobe at this l ocation. The findings would be consistent with an arachnoid cyst at this location. Paranasal sinuses are clear. There is evidence of mild mucosal thickening in the left mastoid air satish ls. IMPRESSION: 1. Evidence of arachnoid cyst in the right middle cranial fossa. Epidermoid at this location is not e xcluded. Suggest MRI brain without contrast to confirm that this is an arachnoid cyst. 2. Mild cortical atrophy and mild chronic ischemic white matter change. POS: AGW
== END 2019-12-12 12:28 | disposition home or self-care (01) ==
LOC: SCSCT 12:27
PROVIDERS: ATTEND Internal Medicine Cardiovascular Disease
DX: R41.82 Altered mental status, unspecified (principal); G93.0 Cerebral cysts; G31.9 Degenerative disease of nervous system, unspecified; I67.82 Cerebral ischemia
CPT/HCPCS: 70450

== ENCOUNTER 2019-12-19 18:45 | Inpatient (IN) | payer MEDICARE, BC, OTHER ==
[~2019-12-19 18:45] MED LIST: Iopamidol-370 76% 500 ML 1 ML ONE
[2019-12-19 19:34] LABS: #Eosinphils 0.1 thou/uL (0.0-0.7); #Lymphocytes 1.8 thou/uL (1.20-3.40); #Monocytes 0.5 thou/uL (0.11-0.59); #Neutrophils 4.9 thou/uL (1.40-6.50); %Eosinophils 1.9 % (0.0-10.0); %Lymphocytes 24.4 % (21.0-51.0); %Monocytes 6.6 % (0.0-10.0); %Neutrophils 67.1 % (42.0-75.0); Hemoglobin 11.4 g/dL (14.0-18.0); Mean Corpuscular HGB CONC 29.9 g/dL (32.0-36.0); Mean Corpuscular Hemoglobin 23.1 pg (27.0-31.0); Mean Corpuscular Volume 77.3 fL (78.0-98.0); Mean Platelet Volume 8.8 fL (7.4-10.4); Platelet Count 244 thou/uL (130-400); RBC Distribution Width 16.3 % (11.5-14.5); Red Blood Cell (RBC) Count 4.93 mill/uL (4.70-6.10); White Blood Cell (WBC) Count 7.3 thou/uL (4.8-10.8)
[2019-12-19 19:42] LABS: INR-International Normal Ratio 1.4; PTT 43.7 sec (22.9-36.1); Prothrombin Time 17.9 sec (12.0-14.7)
[2019-12-19 20:02] LABS: ALT (SGPT) Less than 7 U/L (8-55); AST (SGOT) 19 U/L (5-34); Albumin 3.3 g/dL (3.4-4.8); Alkaline Phosphatase 105 U/L (40-110); Anion Gap 15 mmol/L (10-20); BUN (Urea Nitrogen) 26 mg/dL (8.4-25.7); Bilirubin, Total 1.1 mg/dL (0.2-1.2); Calc. Creatinine Clearance 0 mL/min (70-130); Calcium 8.4 mg/dL (7.8-10.44); Carbon Dioxide 30 mmol/L (23-31); Chloride 99 mmol/L (98-107); Estimated GFR-MDRD 59; Globulin 3.5 g/dL (2.4-3.5); Glucose 103 mg/dL (83-110); Protein, Total 6.8 g/dL (5.8-8.1); Sodium 140 mmol/L (136-145)
[2019-12-20] MEDS ORDERED: Ampicillin/Sulbactam 3 GM in Sodium Chloride 0.9% 100 ML IVPB SCH (01:15)
--- NOTE | 2019-12-20 02:21 | PDOC.HHP ---
Hospitalist HPI - History of Present Illness Rectal bleed History of Present Illness: PCP: Dr. Julio C Romero The patient is a 33-year-old male past medical history significant for A. fib, obstructive sleep apnea, hypertension, and CHF. He presents to the ER today after 5 loose bloody bowel movements. He states that he was of his normal health up until this afternoon around 1730 when he felt the urge to have a bowel movement. He stated it was a particularly large bowel movement and he noticed bright red blood with his stool. He did state he felt a little lightheaded afterwards. He proceeded to have 4 more bowel movements that were also bloody in nature. He states that he had a colonoscopy in the either June or July where he had a polyp removed. He is also a longtime Eliquis user for his atrial fibrillation. He denies any chest pain, abdominal pain, nausea, vomiting, contact with sick persons, syncopal episodes. ED Course: VITAL SIGNS [facility] Dec 19, 2019 18:46 SHARAD Daugherty Kelsey BP: 124/79, Pulse: 109, Resp: 16, Temp: 97.4 (Oral), Pain: 0, O2 sat: 99 on (Room Air), Time: 12/19/2019 18:46. VITAL SIGNS [facility] Dec 19, 2019 21:48 SHARAD Pinon [place] BP: 112/92, MAP: 98, Pulse: 106, Resp: 18, Temp: 97.8 (Oral), Pain: 0, O2 sat: 98 on (Room Air), Time: 12/19/2019 21:48. VITAL SIGNS [facility] Dec 19, 2019 22:24 SHARAD Hill Miranda BP: 109/76, MAP: 87, Pulse: 93, Resp: 19, O2 sat: 98 on (Room Air), Time: 12/19/2019 22:24. VITAL SIGNS [facility] Dec 19, 2019 23:55 SHARAD Hill Miranda BP: 114/73, Pulse: 102, Resp: 23, O2 sat: 97, Time: 12/19/2019 23:55. VITAL SIGNS MonDec 20, 2019 00:43 SHARAD Yan [place] BP: 122/76, Pulse: 106, Resp: 17, Temp: 98.1 (Oral), Pain: 0, O2 sat: 98 on (Room Air), Time: 12/20/2019 00:43. VITAL SIGNS MonDec 20, 2019 01:49 SHARAD Yan [place] BP: 132/77, Pulse: 95, Resp: 20, Temp: 97.9 (Oral), Pain: 0, O2 sat: 97 on (Room Air), Time: 12/20/2019 01:49. Today in the ER they completed lab work, and typed and crossed him. He was a dministered a liter of normal saline and Unasyn injection 3 g. Hospitalist ROS - Review of Systems Constitutional: reports: weakness Gastrointestinal: reports: hematochezia All other systems reviewed; all pertinent +/- noted in HPI/Subj - Medication Medications: No known drug allergies Current medications: carvedilol [facility] Dec 19, 2019 21:51 SHARAD Pinon [place] TABLET : Strength - 25 mg : ORAL Patient Dose: 1 tab(s) Oral 2 times a day. Eliquis [facility] Dec 19, 2019 21:51 SHARAD Pinon [place] TABLET : Strength - 5 mg : ORAL Patient Dose: 1 tab(s) Oral 2 times a day. PreserVision AREDS [facility] Dec 19, 2019 21:51 SHARAD Pinon [place] tablet : Strength - 7,160 unit-113 mg-100 unit-17.4 mg-0.4 mg : ORAL Patient Dose: 1 tab(s) Oral once a day. torsemide oral [facility] Dec 19, 2019 21:52 SHARAD Pinon [place] tablet : Strength - 20 mg : ORAL Patient Dose: 20 mg Oral 2 times a day. spironolactone [facility] Dec 19, 2019 21:52 SHARAD Pinon [place] tablet : Strength - 25 mg : ORAL Patient Dose: 25 mg Oral 2 times a day (with meals). aspirin oral [facility] Dec 19, 2019 21:52 SHARAD Pinon [place] tablet : Strength - 81 mg : ORAL Patient Dose: 81 mg Oral once a day. Hospitalist History - Past Medical History Source: patient Cardiac: reports: AFIB, CHF, HTN Gastrointestinal: reports: Other (Polyp) - Past Surgical History Other Surgical History: Hydrocele removal - Family History Family History: reports: no pertinent history - Social History Smoking Status: Former smoker Alcohol: reports: Occassional Drugs: reports: none Living Situation: With Family Activity level: independent ambulation - Exam General Appearance: NAD, awake alert ENT: normocephalic atraumatic, moist mucosa Heart: RRR, no murmur, no gallops, no rubs, diminshed peripheral pulses Respiratory: CTAB, no wheezes, no rales, no ronchi Gastrointestinal: soft, non-tender, non-distended, normal bowel sounds, no guarding Extremities: no cyanosis Extremities - other findings: 3+ edema Psychiatric: normal affect, normal behavior Hospitalist Results - Labs Result Diagrams: 12/20/19 03:54 12/20/19 03:54 Lab results: WBC 7.3 thou/uL (4.8-10.8) 12/19/19 19:15 Hgb 11.4 g/dL (14.0-18.0) L 12/19/19 19:15 Hct 38.1 % (42.0-52.0) L 12/19/19 19:15 MCV 77.3 fL (78.0-98.0) L 12/19/19 19:15 Plt Count 244 thou/uL (130-400) 12/19/19 19:15 Neutrophils % 67.1 % (42.0-75.0) 12/19/19 19:15 Sodium 140 mmol/L (136-145) 12/19/19 19:15 Potassium 4.0 mmol/L (3.5-5.1) 12/19/19 19:15 Chloride 99 mmol/L (98-107) 12/19/19 19:15 Carbon Dioxide 30 mmol/L (23-31) 12/19/19 19:15 BUN 26 mg/dL (8.4-25.7) H 12/19/19 19:15 Creatinine 1.20 mg/dL (0.7-1.3) 12/19/19 19:15 Glucose 103 mg/dL (83-110) 12/19/19 19:15 Calcium 8.4 mg/dL (7.8-10.44) 12/19/19 19:15 Total Bilirubin 1.1 mg/dL (0.2-1.2) 12/19/19 19:15 AST 19 U/L (5-34) 12/19/19 19:15 ALT Less than 7 U/L (8-55) L 12/19/19 19:15 Alkaline Phosphatase 105 U/L (40-110) 12/19/19 19:15 Serum Total Protein 6.8 g/dL (5.8-8.1) 12/19/19 19:15 Albumin 3.3 g/dL (3.4-4.8) L 12/19/19 19:15 Hospitalist H&P A/P - Problem (1) GI bleed Code(s): K92.2 - GASTROINTESTINAL HEMORRHAGE, UNSPECIFIED Status: Acute (2) Atrial fibrillation Code(s): I48.91 - UNSPECIFIED ATRIAL FIBRILLATION Status: Chronic (3) Hypertension Code(s): I10 - ESSENTIAL (PRIMARY) HYPERTENSION Status: Chronic (4) Lower extremity edema Code(s): R60.0 - LOCALIZED EDEMA Status: Acute (5) Diastolic heart failure Code(s): I50.30 - UNSPECIFIED DIASTOLIC (CONGESTIVE) HEART FAILURE Status: Chronic - Plan Plan: GI bleed Awaiting CT abdomen results- has been taken at this time but results are not available, ED reported possible diverticulitis, no report or images available at this time Continue to monitor bowel movements for blood GI consult in a.m. Trend H&H Continue to monitor vital signs BUN 26 Hemoglobin 11.4, was 11.3 a month ago. Lower extremity edema with history of diastolic heart failure 2 L fluid restriction No shortness of breath or chest pain at this time Was seen last month for acute diastolic heart failure with pulmonary edema and left-sided pleural effusion, upon discharge his lower extremities had 1-2+ pitting edema, patient states they are currently more edematous than usual Hypertension Continue monitor vital signs every 4 hours Restart home medications Vital signs currently stable at this time SCDs for VTE prophylaxis and Protonix for GI prophylaxis CODE STATUS: Full Surrogate decision maker is his , Olena Patient discussed with Dr. Long
[2019-12-20 03:56] VITALS: BMI 32.5
[2019-12-20 04:13] LABS: #Eosinphils 0.1 thou/uL (0.0-0.7); #Lymphocytes 1.8 thou/uL (1.20-3.40); #Monocytes 0.6 thou/uL (0.11-0.59); #Neutrophils 4.8 thou/uL (1.40-6.50); %Basophils 0.6 % (0.0-1.0); %Eosinophils 1.7 % (0.0-10.0); %Lymphocytes 24.5 % (21.0-51.0); %Monocytes 7.5 % (0.0-10.0); %Neutrophils 65.7 % (42.0-75.0); Hemoglobin 9.2 g/dL (14.0-18.0); Mean Corpuscular HGB CONC 30.6 g/dL (32.0-36.0); Mean Corpuscular Hemoglobin 23.6 pg (27.0-31.0); Mean Corpuscular Volume 77.1 fL (78.0-98.0); Mean Platelet Volume 8.8 fL (7.4-10.4); Platelet Count 206 thou/uL (130-400); RBC Distribution Width 16.1 % (11.5-14.5); Red Blood Cell (RBC) Count 3.88 mill/uL (4.70-6.10); White Blood Cell (WBC) Count 7.4 thou/uL (4.8-10.8)
[2019-12-20 04:32] LABS: Anion Gap 11 mmol/L (10-20); BUN (Urea Nitrogen) 24 mg/dL (8.4-25.7); Calc. Creatinine Clearance 84 mL/min (70-130); Calcium 7.9 mg/dL (7.8-10.44); Carbon Dioxide 29 mmol/L (23-31); Chloride 102 mmol/L (98-107); Estimated GFR-MDRD 69; Glucose 108 mg/dL (83-110); Magnesium 1.8 mg/dL (1.6-2.6); Potassium 3.7 mmol/L (3.5-5.1); Sodium 138 mmol/L (136-145)
--- NOTE | 2019-12-20 08:03 | CT ---
ABDOMEN CT WITH CONTRAST PELVIC CT WITH CONTRAST: HISTORY: Loose bloody stools. COMPARISON: None. FINDINGS: ABDOMEN CT: Bilateral pleural effusions. Left lower lobe consolidation likely due to atelectasis. The heart is enlarged. No significant pericardial fluid. There are coronary artery calcifications. There is a small sacular aneurysm in the infrarenal abdominal aorta measuring 1 x 1 cm. Gallbladder is unremarkable. Portal vein is patent. Liver, spleen, pancreas, and adrenal glands have appropriate attenuation and enhancement. No gastrohepatic, retrocrural or periportal lymphadenopathy. No mesenteric mass, free air, or signif icant free fluid. Trace fluid in both paracolic gutters. There is symmetric enhancement of the kidneys. Bilaterally, no obstructive uropathy. Exophytic cyst emanates from the left renal cortex, measuring 9.2 x 8.6 cm. The cyst is slightly complex. Limited evaluation of the alimentary canal by the lack of oral contrast. No evidence of a small kathleen l obstruction. Normal ileocecal junction. Normal caliber appendix. Scattered fecal material in a n ondistended, nondilated colon. There is evidence of diverticulosis. There is mild mucosal thickenin g and pericolonic fat stranding involving the mid descending colon suggesting possible diverticulitis . No abscess or perforation. PELVIC CT: No mass, lymphadenopathy, free air, or free fluid. Urinary bladder has a normal appearance. IMPRESSION: 1. Diverticulitis involving the mid descending colon without evidence of abscess or formation. 2. Normal-caliber appendix. 3. Complex left renal cyst. 4. 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 POS: OFF
[2019-12-20] MEDS ORDERED: Ondansetron ODT 4 MG TAB PO PRN (08:57)
[2019-12-20] MEDS ORDERED: Ondansetron PF 4 MG/2 ML Vial IVP PRN (08:57)
[2019-12-20] MEDS ORDERED: Acetaminophen 650 MG Suppository PR PRN (08:57)
[2019-12-20] MEDS ORDERED: Calcium Carbonate 500 MG ChewTAB PO PRN (08:57)
[2019-12-20] MEDS ORDERED: Acetaminophen 325 MG TAB PO PRN (08:57)
[2019-12-20] MEDS ORDERED: Pantoprazole 40 MG VIAL IVP SCH (09:00)
[2019-12-20 12:35] LABS: SARS-CoV-2 MS2 Positive; SARS-CoV-2 N Gene Negative; SARS-CoV-2 S Gene Negative; SARS-CoV-2 by NAA Not Detected (NotDetected); SARS-CoV-2 orf1ab Negative
[2019-12-20 12:55] LABS: Hemoglobin 9.2 g/dL (14.0-18.0); Platelet Count 196 thou/uL (130-400)
[2019-12-20 13:15] LABS: Iron 29 ug/dL (65-175); Iron Binding Capacity, Total 266 mcg/dL (261-462)
[2019-12-20] MEDS ORDERED: Piperacillin/Tazobactam 3.375 GM in Sodium Chloride 0.9% 100 ML IVPB SCH (18:45)
[2019-12-20] MEDS ORDERED: Spironolactone 25 MG TAB PO SCH (19:00)
[2019-12-20] MEDS: Carvedilol 6.25 MG TAB PO SCH (20:55)
[2019-12-20] MEDS: Piperacillin/Tazobactam 3.375 GM in Sodium Chloride 0.9% 100 ML IVPB SCH (20:55)
[2019-12-20] MEDS: Pantoprazole 40 MG VIAL IVP SCH (20:56)
[2019-12-20] MEDS ORDERED: Carvedilol 25 MG TAB PO SCH (21:00)
[2019-12-20] MEDS ORDERED: metroNIDAZOLE 500 MG in Premix Bag 1 BAG IVPB SCH (22:00)
--- NOTE | 2019-12-21 | CON ---
DATE OF CONSULTATION: 12/20/2019 REASON FOR CONSULTATION: Acute uncomplicated diverticulitis. CONSULTING PROVIDER: Ms. Tressa Fernandez. HISTORY OF PRESENT ILLNESS: The patient is a 73-year-old male with past medical history of atrial fibrillation, on chronic anticoagulation; obstructive sleep apnea; hypertension; and congestive heart failure, presenting with complaints of hematochezia. He states that he was in his usual state of health until yesterday morning when he had the sensation to have a bowel movement. Upon having a bowel movement, he noticed hematochezia characterized as bright red blood per rectum both present on the toilet paper and in the toilet with a [id number] amount of blood loss. He stated that he had 2 additional bloody bowel movements later that day that were similar in coloration and in volume, at which point it prompted him to seek healthcare assistance at the [facility] ER. Since being evaluated in the ER and in the hospital in general, the patient has had 2 additional bloody bowel movements, but have been diminishing in terms of the amount of bright red blood per rectum with a minimal amount of blood today. With the onset of this hematochezia, he did not initially have any associated symptoms, but upon evaluation in the ER last night, with abdominal palpation by the ER physician, he did have increased left-sided abdominal pain characterized as a pressure type pain, was nonradiating and reached a severity of 4/10 to 5/10. Of note, prior to admission, the patient had been having increased constipation characterized as having 1 to 2 solid bowel movements per day ([place] 2-3) with no difficulty with defecation, but spending prolonged amounts of time in the toilet in order to facilitate defecation. Otherwise, he currently denies any nausea, vomiting, fevers, chills, hematemesis, melena, dysphagia, odynophagia, constipation, or weight loss. Of note, the patient underwent a colonoscopy on July 24, 2019, which showed approximately 5 ascending colon, 4 transverse colon, and 2 sigmoid/descending colon polyps that were all removed completely and read as tubular adenomas. Also noted was a pancolonic diverticulosis in addition to internal and external hemorrhoids. REVIEW OF SYSTEMS: A 10-category review of systems was obtained with all responses negative except for the pertinent positives as listed in HPI. PAST MEDICAL HISTORY: As per HPI. PAST SURGICAL HISTORY: Hydrocele resection. FAMILY HISTORY: Denies any GI malignancies. SOCIAL HISTORY: Denies any tobacco or illicit drug use. Drinks approximately 1 to 2 drinks every 1 to 2 weeks. OUTPATIENT MEDICATIONS: Reviewed. ALLERGIES: NO KNOWN DRUG ALLERGIES. PHYSICAL EXAMINATION: VITAL SIGNS: Temperature 97.5, pulse 104, blood pressure 114/75, respiratory rate 18, saturating 94% on room air. GENERAL: The patient was lying in bed, in no acute distress. Alert and oriented x4. HEENT: Normocephalic and atraumatic. NECK: Supple. No JVD or scleral icterus noted. CARDIOVASCULAR: Tachycardic rate, but regular rhythm. No discernible murmurs, gallops, or rubs. RESPIRATORY: Clear to auscultation bilaterally with no discernible wheezes or rales. ABDOMEN: Normoactive bowel sounds. Soft, nondistended. Mild tenderness to palpation in the left mid abdomen. EXTREMITIES: No cyanosis, clubbing, or edema. LABORATORY DATA: CBC with a white blood cell count of 7.4, hemoglobin 9.2, hematocrit 30, platelets 206. INR 1.4. Chemistry with a sodium of 138, potassium 3.7, chloride 102, CO2 of 29, BUN 24, creatinine 1.05, glucose 108, AST 19, ALT less than 7, alkaline phosphatase 105, total bilirubin 1.1. IMAGING DATA: CT of the abdomen and pelvis was obtained on December 19, 2019, which showed bilateral pleural effusions in addition to a left lower lobe consolidation consistent with atelectasis. Cardiomegaly was also seen, but mild mucosal thickening and pericolonic fat stranding was seen in the mid descending colon consistent with diverticulitis. ASSESSMENT AND PLAN: The patient is a 73-year-old male with past medical history of atrial fibrillation, obstructive sleep apnea, hypertension, and congestive heart failure, presenting with acute uncomplicated diverticulitis. Acute uncomplicated diverticulitis. The patient is presenting with acute onset of hematochezia characterized as bright red blood per rectum in association with left-sided abdominal pain. A colonoscopy in July of 2019 showing pancolonic diverticulosis and a CT scan on admission consistent with diverticulitis. At this time, the most likely explanation for his current symptoms is acute diverticulitis that does not have any evidence of complications including abscess formation, fluid collection, or perforation. With the congregation of chronic anticoagulation with Eliquis, it is most likely contributing to the hematochezia recently seen in conjunction with the inflammation associated with diverticulitis. RECOMMENDATIONS: 1. Would advance the patient's diet to a clear-liquid diet and advance as tolerated to a low-fiber diet. 2. Pain control per primary team. 3. Would continue to hold anticoagulation at least for the time being. 4. Would place the patient on antibiotics as part of treatment for his acute uncomplicated diverticulitis including ciprofloxacin and Flagyl or Zosyn. Would likely discharge on cipro/flagyl regimen. 5. Would continue to trend his H and H and transfuse as necessary to maintain an H and H of 7/21. 6. Continue to monitor clinically for signs of active GI bleeding. We will continue to follow. Please call with any questions. Job ID: [id number] [facility]
[2019-12-21] MEDS: Piperacillin/Tazobactam 3.375 GM in Sodium Chloride 0.9% 100 ML IVPB SCH ×4 (04:20→21:55)
[2019-12-21 06:32] LABS: Albumin 2.6 g/dL (3.4-4.8); Anion Gap 12 mmol/L (10-20); BUN (Urea Nitrogen) 19 mg/dL (8.4-25.7); Bilirubin, Total 1.3 mg/dL (0.2-1.2); Calc. Creatinine Clearance 92 mL/min (70-130); Calcium 7.9 mg/dL (7.8-10.44); Carbon Dioxide 29 mmol/L (23-31); Chloride 103 mmol/L (98-107); Estimated GFR-MDRD 77; Glucose 86 mg/dL (83-110); Protein, Total 5.4 g/dL (5.8-8.1); Sodium 140 mmol/L (136-145)
[2019-12-21 06:33] LABS: ALT (SGPT) Less than 7 U/L (8-55); AST (SGOT) 15 U/L (5-34); Alkaline Phosphatase 76 U/L (40-110); Globulin 2.8 g/dL (2.4-3.5); Magnesium 1.9 mg/dL (1.6-2.6)
[2019-12-21 07:02] LABS: #Eosinphils 0.1 thou/uL (0.0-0.7); #Lymphocytes 1.5 thou/uL (1.20-3.40); #Monocytes 0.4 thou/uL (0.11-0.59); #Neutrophils 3.4 thou/uL (1.40-6.50); %Basophils 0.3 % (0.0-1.0); %Eosinophils 2.7 % (0.0-10.0); %Monocytes 7.6 % (0.0-10.0); %Neutrophils 62.5 % (42.0-75.0); Hemoglobin 8.2 g/dL (14.0-18.0); Mean Corpuscular HGB CONC 29.8 g/dL (32.0-36.0); Mean Corpuscular Volume 77.1 fL (78.0-98.0); Mean Platelet Volume 8.7 fL (7.4-10.4); Platelet Count 192 thou/uL (130-400); RBC Distribution Width 16.2 % (11.5-14.5); Red Blood Cell (RBC) Count 3.58 mill/uL (4.70-6.10); White Blood Cell (WBC) Count 5.4 thou/uL (4.8-10.8)
[2019-12-21] MEDS: Spironolactone 25 MG TAB PO SCH (07:59)
[2019-12-21] MEDS: Carvedilol 6.25 MG TAB PO SCH ×2 (07:59→20:22)
[2019-12-21] MEDS: Pantoprazole 40 MG VIAL IVP SCH ×2 (07:59→20:23)
[2019-12-21] MEDS ORDERED: Spironolactone 25 MG TAB PO SCH (08:00)
[2019-12-21] MEDS ORDERED: Torsemide 20 MG TAB PO SCH (09:00)
[2019-12-21] MEDS: Torsemide 20 MG TAB PO SCH (10:13)
--- NOTE | 2019-12-21 12:30 | PRG ---
DATE OF SERVICE: 12/21/2019 REASON FOR CONSULTATION: Acute uncomplicated diverticulitis. SUBJECTIVE: The patient did not have any acute events or problems overnight. Today, he states that his abdominal pain has completely resolved, nor has he had any additional episodes of hematochezia since admission. Currently, he denies any nausea, vomiting, fevers, chills, hematemesis, melena, hematochezia, dysphagia, odynophagia, or abdominal pain. OBJECTIVE: VITAL SIGNS: Temperature 97.4, pulse 100, blood pressure 124/82, respiratory rate 17, and saturating 96% on room air. GENERAL: The patient was sitting in a chair at bedside, in no acute distress. Alert and oriented x4. CARDIOVASCULAR: Regular rate and rhythm. RESPIRATORY: Clear to auscultation bilaterally. ABDOMEN: Normoactive bowel sounds. Soft, nontender, nondistended. EXTREMITIES: No cyanosis, clubbing, or edema. LABORATORY DATA: CBC with a white blood cell count of 5.4, hemoglobin 8.2, hematocrit 27.6, platelets 192. Chemistry with a sodium of 140, potassium 4, chloride 103, CO2 of 29, BUN 19, creatinine 0.95, glucose 86, AST 15, ALT less than 7, alkaline phosphatase 76, total bilirubin 1.3. IMAGING DATA: No current GI imaging is available for review. ASSESSMENT AND PLAN: The patient is a 73-year-old male with past medical history of atrial fibrillation, on anticoagulation, obstructive sleep apnea, hypertension, and congestive heart failure, presenting with acute uncomplicated diverticulitis with bleeding. Uncomplicated diverticulitis with bleeding: The patient initially presented with acute onset of hematochezia in association with left-sided abdominal pain. CT scan on admission was consistent with diverticulitis without the presence of abscess, fluid collection, or perforation. Colonoscopy performed in July of 2019 showed pancolonic diverticulosis as well as multiple colonic polyps, but are most likely not contributing to the current clinical picture. At this time, the most likely explanation for his symptoms is acute uncomplicated diverticulitis that is responding to antibiotic therapy with the inflammation associated with diverticulitis, it most likely resulted in hematochezia, made worse with chronic anticoagulation with Eliquis. At the current time, the patient is asymptomatic and has had no further evidence of GI bleeding but did have a slight decline in his H and H when compared to yesterday, raising mild concern for GI bleeding. RECOMMENDATIONS: 1. Would continue to trend his H and H and transfuse as necessary to maintain an H and H of 7/21. 2. Continue to monitor clinically for signs of active GI bleeding. 3. Would continue to hold anticoagulation for the time being. 4. Advance the patient's diet to a full liquid diet, and if he does well on that, advance to a low-fiber diet. 5. Pain control per primary team. 6. Continue antibiotics as part of treatment for diverticulitis with Zosyn as long as the patient is inpatient. The patient could be discharged on ciprofloxacin and Flagyl for further antibiotic treatment over the course of 10 days total duration of therapy. If the patient's H and H are stable tomorrow, he could be discharged to home with followup in the outpatient clinic. We will continue to follow peripherally at this time. Please call with any additional questions. Job ID: [id number]
--- NOTE | 2019-12-21 17:03 | PDOC.HOSPP ---
- Subjective Encounter Date: 12/21/19 Encounter Time: 09:30 Subjective: Patient seen and examined for GI bleeding with diverticulitis. Abdominal pain improving. No significant nausea or vomiting. No fever or chills. - Objective Vital Signs & Weight: Vital Signs (12 hours) Temp Pulse Resp BP BP Pulse Ox 12/21/19 15:33 98 F 94 18 118/81 96 12/21/19 11:51 98.6 F 108 H 17 108/74 98 12/21/19 07:19 97.4 F L 100 17 124/82 96 Weight Admit Weight 214 lb 4 oz Weight 214 lb 4 oz I&O: 12/20/19 12/21/19 12/22/19 06:59 06:59 06:59 Intake Total 306 Balance 306 Result Diagrams: 12/21/19 05:35 12/21/19 05:35 Additional Labs: Abnormal Lab Results 12/19/19 19:15: Hgb 11.4 L, Hct 38.1 L, MCV 77.3 L, MCH 23.1 L, MCHC 29.9 L, RDW 16.3 H 12/19/19 19:15: BUN 26 H, ALT Less than 7 L, Albumin 3.3 L, Albumin/Globulin Ratio 0.9 L 12/19/19 19:15: PT 17.9 H, APTT 43.7 H 12/20/19 03:54: RBC 3.88 L, Hgb 9.2 L, Hct 30.0 L, MCV 77.1 L, MCH 23.6 L, MCHC 30.6 L, RDW 16.1 H, Monocytes # 0.6 H 12/20/19 12:44: Iron 29 L 12/20/19 12:44: Hgb 9.2 L, Hct 31.8 L 12/21/19 05:35: RBC 3.58 L, Hgb 8.2 L, Hct 27.6 L, MCV 77.1 L, MCH 23.0 L, MCHC 29.8 L, RDW 16.2 H 12/21/19 05:35: Total Bilirubin 1.3 H, ALT Less than 7 L, Serum Total Protein 5.4 L, Albumin 2.6 L, Albumin/Globulin Ratio 0.9 L Radiology Reviewed by me: Yes (CT scanacute diverticulitis) Hospitalist ROS - Review of Systems Respiratory: denies: cough, dry, shortness of breath, hemoptysis, SOB with excertion, pleuritic pain, sputum, wheezing, other Cardiovascular: denies: chest pain, palpitations, orthopnea, paroxysmal noc. dyspnea, edema, light headedness, other - Medication Medications: Active Medications Generic Name Dose Route Start Last Admin Trade Name Freq PRN Reason Stop Dose Admin Carvedilol 6.25 mg 12/20/19 21:00 12/21/19 07:59 Carvedilol 6.25 Mg Tab PO 6.25 mg BID VANNESSA Administration Piperacillin Sod/Tazobactam 100 mls @ 200 mls/hr 12/20/19 21:00 12/21/19 16:44 Sod 3.375 gm/ Sodium Chloride IVPB 100 mls Q6H VANNESSA Administration Pantoprazole Sodium 40 mg 12/20/19 21:00 12/21/19 07:59 Pantoprazole 40 Mg Vial IVP 40 mg Q12HR VANNESSA Administration Sodium Chloride 10 ml 12/20/19 03:30 12/21/19 16:44 Flush - Normal Saline 10 Ml Syringe IVF 10 ml PRN PRN Administration Saline Flush Spironolactone 25 mg 12/21/19 08:00 12/21/19 07:59 Spironolactone 25 Mg Tab PO 25 mg QAM-WM VANNESSA Administration Torsemide 20 mg 12/21/19 09:00 12/21/19 10:13 Torsemide 20 Mg Tab PO 20 mg DAILY VANNESSA Administration - Exam General Appearance: NAD Neck: supple, no JVD Heart: RRR, no gallops Respiratory: no rales, no ronchi Gastrointestinal: soft, non-distended, no guarding, no rigidity Hosp A/P (1) Acute diverticulitis Code(s): K57.92 - DVTRCLI OF INTEST, PART UNSP, W/O PERF OR ABSCESS W/O BLEED Status: Acute (2) Lower GI bleeding Code(s): K92.2 - GASTROINTESTINAL HEMORRHAGE, UNSPECIFIED Status: Acute (3) Acute blood loss anemia Code(s): D62 - ACUTE POSTHEMORRHAGIC ANEMIA Status: Acute (4) Chronic atrial fibrillation Code(s): I48.20 - CHRONIC ATRIAL FIBRILLATION, UNSPECIFIED Status: Chronic (5) Obesity (BMI 30.0-34.9) Code(s): E66.9 - OBESITY, UNSPECIFIED Status: Chronic (6) Chronic diastolic heart failure Code(s): I50.32 - CHRONIC DIASTOLIC (CONGESTIVE) HEART FAILURE Status: Chronic (7) Hypertension Code(s): I10 - ESSENTIAL (PRIMARY) HYPERTENSION Status: Chronic (8) Iron deficiency anemia Code(s): D50.9 - IRON DEFICIENCY ANEMIA, UNSPECIFIED Status: Acute - Plan DVT proph w/SCDs 12/20 Continue IV Zosyn. Anticoagulation on hold due to lower GI bleeding which is probably from diverticulitis. Continue IV PPIs. Continue low-dose carvedilol along with spironolactone and torsemide. Advance diet to low residue diet per GI recommendation. Recheck labs in a.m. Hemoglobin today was 8.2 from 11.4 on admission. Continue other medications as above. Start iron infusion.
[2019-12-21] MEDS ORDERED: Iron, Sodium Ferric Gluconate 250 MG in Sodium Chloride 0.9% 100 ML IVPB SCH (17:15)
[2019-12-21] MEDS ORDERED: Iron Sucrose Complex 200 MG in Sodium Chloride 0.9% 100 ML IVPB SCH (17:15)
[2019-12-22] MEDS: Piperacillin/Tazobactam 3.375 GM in Sodium Chloride 0.9% 100 ML IVPB SCH ×4 (03:55→20:09)
[2019-12-22 06:19] LABS: Anion Gap 11 mmol/L (10-20); BUN (Urea Nitrogen) 18 mg/dL (8.4-25.7); Calc. Creatinine Clearance 79 mL/min (70-130); Calcium 7.7 mg/dL (7.8-10.44); Carbon Dioxide 29 mmol/L (23-31); Chloride 103 mmol/L (98-107); Estimated GFR-MDRD 65; Glucose 92 mg/dL (83-110); Potassium 3.4 mmol/L (3.5-5.1); Sodium 140 mmol/L (136-145)
[2019-12-22 06:35] LABS: Band 2 % (5-11); Hemoglobin 7.8 g/dL (14.0-18.0); Lymphocytes 15 % (21-51); MDiff Complete? YES; Mean Corpuscular HGB CONC 30.6 g/dL (32.0-36.0); Mean Corpuscular Hemoglobin 23.5 pg (27.0-31.0); Mean Corpuscular Volume 76.8 fL (78.0-98.0); Mean Platelet Volume 8.5 fL (7.4-10.4); Metamyelocyte 1 % (0-0); Monocytes 8 % (0-10); Neutrophil 74 % (42-75); Platelet Count 190 thou/uL (130-400); RBC Distribution Width 16.1 % (11.5-14.5); Red Blood Cell (RBC) Count 3.34 mill/uL (4.70-6.10); White Blood Cell (WBC) Count 5.2 thou/uL (4.8-10.8)
[2019-12-22] MEDS: Potassium Chloride 20 MEQ TAB PO SCH ×2 (07:49→17:23)
[2019-12-22] MEDS: Pantoprazole 40 MG VIAL IVP SCH ×2 (07:50→20:07)
[2019-12-22] MEDS: Spironolactone 25 MG TAB PO SCH ×2 (07:50→17:23)
[2019-12-22] MEDS: Torsemide 20 MG TAB PO SCH (07:50)
[2019-12-22] MEDS: Carvedilol 6.25 MG TAB PO SCH ×2 (07:51→20:08)
[2019-12-22] MEDS ORDERED: Iron, Sodium Ferric Gluconate 250 MG in Sodium Chloride 0.9% 100 ML IVPB SCH (11:15)
--- NOTE | 2019-12-22 11:17 | PDOC.HOSPP ---
- Subjective Encounter Date: 12/22/19 Encounter Time: 10:30 Subjective: Patient seen and examined for acute diverticulitis with GI bleeding. Had to semisoft bowel movement which were brown earlier today. Denies any abdominal pain or nausea. No fever or chills reported. - Objective Vital Signs & Weight: Vital Signs (12 hours) Temp Pulse Resp BP BP BP Pulse Ox 12/22/19 07:51 112/77 12/22/19 07:29 97.4 F L 99 18 116/77 90 L 12/22/19 04:00 97.3 F L 88 18 111/76 96 12/22/19 00:00 97.4 F L 91 18 114/75 96 Weight Admit Weight 214 lb 4 oz Weight 214 lb 4 oz I&O: 12/21/19 12/22/19 12/23/19 06:59 06:59 06:59 Intake Total 306 Balance 306 Result Diagrams: 12/22/19 05:25 12/22/19 05:25 Additional Labs: 12/20/19 12:44: Iron 29 L 12/20/19 12:44: Hgb 9.2 L, Hct 31.8 L 12/21/19 05:35: RBC 3.58 L, Hgb 8.2 L, Hct 27.6 L, MCV 77.1 L, MCH 23.0 L, MCHC 29.8 L, RDW 16.2 H 12/21/19 05:35: Total Bilirubin 1.3 H, ALT Less than 7 L, Serum Total Protein 5.4 L, Albumin 2.6 L, Albumin/Globulin Ratio 0.9 L 12/22/19 05:25: Potassium 3.4 L, Calcium 7.7 L 12/22/19 05:25: RBC 3.34 L, Hgb 7.8 L, Hct 25.6 L, MCV 76.8 L, MCH 23.5 L, MCHC 30.6 L, RDW 16.1 H, Band Neuts % (Manual) 2 L, Lymphocytes % (Manual) 15 L, Metamyelocytes % (Man) 1 H Hospitalist ROS - Review of Systems Respiratory: denies: cough, dry, shortness of breath, hemoptysis, SOB with excertion, pleuritic pain, sputum, wheezing, other Cardiovascular: denies: chest pain, palpitations, orthopnea, paroxysmal noc. dyspnea, edema, light headedness, other - Medication Medications: Active Medications Generic Name Dose Route Start Last Admin Trade Name Freq PRN Reason Stop Dose Admin Carvedilol 6.25 mg 12/20/19 21:00 12/22/19 07:51 Carvedilol 6.25 Mg Tab PO 6.25 mg BID VANNESSA Administration Piperacillin Sod/Tazobactam 100 mls @ 200 mls/hr 12/20/19 21:00 12/22/19 07:50 Sod 3.375 gm/ Sodium Chloride IVPB 100 mls Q6H VANNESSA Administration Pantoprazole Sodium 40 mg 12/20/19 21:00 12/22/19 07:50 Pantoprazole 40 Mg Vial IVP 40 mg Q12HR VANNESSA Administration Potassium Chloride 20 meq 12/22/19 08:00 12/22/19 07:49 Potassium Chloride 20 Meq Tab PO 12/22/19 17:01 20 meq BID-WM VANNESSA Administration Sodium Chloride 10 ml 12/20/19 03:30 12/21/19 16:44 Flush - Normal Saline 10 Ml Syringe IVF 10 ml PRN PRN Administration Saline Flush Spironolactone 25 mg 12/21/19 08:00 12/22/19 07:50 Spironolactone 25 Mg Tab PO 25 mg QAM-WM VANNESSA Administration - Exam General Appearance: NAD Neck: supple, no JVD Heart: RRR, no gallops Respiratory: no wheezes, no rales Gastrointestinal: soft, normal bowel sounds, no guarding, no rigidity Neurological: no new deficit Psychiatric: normal affect, A&O x 3 Hosp A/P (1) Acute diverticulitis Code(s): K57.92 - DVTRCLI OF INTEST, PART UNSP, W/O PERF OR ABSCESS W/O BLEED Status: Acute (2) Lower GI bleeding Code(s): K92.2 - GASTROINTESTINAL HEMORRHAGE, UNSPECIFIED Status: Acute (3) Acute blood loss anemia Code(s): D62 - ACUTE POSTHEMORRHAGIC ANEMIA Status: Acute (4) Chronic atrial fibrillation Code(s): I48.20 - CHRONIC ATRIAL FIBRILLATION, UNSPECIFIED Status: Chronic (5) Obesity (BMI 30.0-34.9) Code(s): E66.9 - OBESITY, UNSPECIFIED Status: Chronic (6) Chronic diastolic heart failure Code(s): I50.32 - CHRONIC DIASTOLIC (CONGESTIVE) HEART FAILURE Status: Chronic (7) Hypertension Code(s): I10 - ESSENTIAL (PRIMARY) HYPERTENSION Status: Chronic (8) Iron deficiency anemia Code(s): D50.9 - IRON DEFICIENCY ANEMIA, UNSPECIFIED Status: Acute - Plan DVT proph w/SCDs 12/21 Recheck H&H around 3 PM today. 1 more dose of IV iron. Change torsemide to 20 mg twice daily (home dose). Increase spironolactone to home dose. Replace potassium.. Continue IV PPIs 12/20 Continue IV Zosyn. Anticoagulation on hold due to lower GI bleeding which is pr obably from diverticulitis. Continue IV PPIs. Continue low-dose carvedilol along with spironolactone and torsemide. Advance diet to low residue diet per GI recommendation. Recheck labs in a.m. Hemoglobin today was 8.2 from 11.4 on admission. Continue other medications as above. Start iron infusion.
[2019-12-22] MEDS ORDERED: Torsemide 20 MG TAB PO SCH (14:00)
[2019-12-22 15:13] LABS: Hemoglobin 8.3 g/dL (14.0-18.0)
--- NOTE | 2019-12-22 16:25 | PRG ---
DATE OF SERVICE: 12/22/2019 REASON FOR CONSULTATION: Acute uncomplicated diverticulitis. SUBJECTIVE: Today, the patient states that he is doing very well with no acute events or problems overnight. He adds that he has had complete resolution of his abdominal pain nor has he had any additional episodes of hematochezia. He has been able to tolerate a solid diet without difficulty and had 2 bowel movements this morning that were semi-solid in consistency and brown in coloration. Currently, he denies any nausea, vomiting, fevers, chills, hematemesis, melena, or hematochezia. OBJECTIVE: VITAL SIGNS: Temperature 97.5, pulse 106, blood pressure 124/80, respiratory rate 16, and saturating 99% on room air. GENERAL: The patient was standing up in his room at the time of the interview, but then later sitting on the bed with no acute distress. Alert and oriented x4. CARDIOVASCULAR: Regular rate and rhythm. RESPIRATORY: Clear to auscultation bilaterally. ABDOMEN: Normoactive bowel sounds. Soft, nontender, and nondistended. EXTREMITIES: No cyanosis, clubbing, or edema. LABORATORY DATA: CBC with a white blood cell count of 5.2, hemoglobin 7.8, hematocrit 25.6, and platelets 190. Chemistry with a sodium of 140, potassium 3.4, chloride 103, CO2 of 29, BUN 18, creatinine 1.11, and glucose 92. Repeat hemoglobin and hematocrit showed a hemoglobin of 8.3 and a hematocrit of 26.2. IMAGING DATA: No current GI imaging is available for review. ASSESSMENT AND PLAN: The patient is a 73-year-old male with past medical history of atrial fibrillation, on anticoagulation; obstructive sleep apnea; hypertension; and congestive heart failure, presenting with acute uncomplicated diverticulitis with bleeding. Uncomplicated diverticulitis but bleeding. The patient initially presented with acute onset of hematochezia as well as left-sided abdominal pain with CT scan consistent with diverticulitis. The patient has responded well to antibiotic therapy thus far with complete resolution of his abdominal pain and hematochezia with a stable hemoglobin and hematocrit over the last 24 hours. He did have a decrease in his hemoglobin and hematocrit this morning, but upon recheck again showing stabilization of his hemoglobin and hematocrit. RECOMMENDATIONS: 1. Would continue to trend his hemoglobin and hematocrit and transfuse as necessary to maintain the hemoglobin and hematocrit of 7/21. 2. Continue to monitor clinically for signs of active GI bleeding. 3. Continue to hold anticoagulation for at least the next 24 to 48 hours. 4. Advance diet as tolerated to low-fiber diet. 5. Pain control per primary team. 6. Can continue the patient on Zosyn as long as he is inpatient. However, on discharge, would probably recommend ciprofloxacin and Flagyl for a total duration of therapy of 10 days. If the patient's hemoglobin and hematocrit are stable tomorrow, he can be potentially discharged to home with followup in the outpatient clinic. We will sign off at this time. Please call with any questions. Job ID: [id number]
[2019-12-23] MEDS: Piperacillin/Tazobactam 3.375 GM in Sodium Chloride 0.9% 100 ML IVPB SCH ×2 (04:00→09:29)
[2019-12-23 06:21] LABS: #Eosinphils 0.2 thou/uL (0.0-0.7); #Lymphocytes 1.5 thou/uL (1.20-3.40); #Monocytes 0.5 thou/uL (0.11-0.59); #Neutrophils 3.3 thou/uL (1.40-6.50); %Basophils 0.4 % (0.0-1.0); %Eosinophils 3.8 % (0.0-10.0); %Lymphocytes 26.6 % (21.0-51.0); %Monocytes 9.7 % (0.0-10.0); %Neutrophils 59.5 % (42.0-75.0); Hemoglobin 7.9 g/dL (14.0-18.0); Mean Corpuscular HGB CONC 30.2 g/dL (32.0-36.0); Mean Corpuscular Hemoglobin 23.3 pg (27.0-31.0); Mean Corpuscular Volume 77.2 fL (78.0-98.0); Mean Platelet Volume 8.4 fL (7.4-10.4); Platelet Count 231 thou/uL (130-400); RBC Distribution Width 16.7 % (11.5-14.5); Red Blood Cell (RBC) Count 3.39 mill/uL (4.70-6.10); White Blood Cell (WBC) Count 5.5 thou/uL (4.8-10.8)
[2019-12-23 06:43] LABS: Anion Gap 13 mmol/L (10-20); BUN (Urea Nitrogen) 16 mg/dL (8.4-25.7); Calc. Creatinine Clearance 64 mL/min (70-130); Calcium 7.9 mg/dL (7.8-10.44); Carbon Dioxide 27 mmol/L (23-31); Chloride 105 mmol/L (98-107); Estimated GFR-MDRD 50; Glucose 94 mg/dL (83-110); Potassium 3.8 mmol/L (3.5-5.1); Sodium 141 mmol/L (136-145)
[2019-12-23] MEDS: Carvedilol 6.25 MG TAB PO SCH (09:28)
[2019-12-23] MEDS: Pantoprazole 40 MG VIAL IVP SCH (09:28)
[2019-12-23] MEDS: Spironolactone 25 MG TAB PO SCH (09:30)
[2019-12-23 12:12] VITALS: BP 116/75; TEMP 97.6
--- NOTE | 2019-12-23 13:22 | DIS ---
DATE OF ADMISSION: 12/20/2019 DATE OF DISCHARGE: 12/23/2019 DISCHARGE DISPOSITION: Home. FOLLOWUP: 1. Follow up with primary care physician, Dr. Julio C Romero, later this week. 2. Follow up with Cardiology, Dr. Corcoran, as scheduled. 3. Follow up with Gastroenterology in 1 to 2 weeks. Repeat hemoglobin and basic metabolic profile later this week are recommended. Primary care physician advised to follow. I updated Dr. Romero's office. The patient can probably start Eliquis if repeat hemoglobin is stable. ALLERGIES: NO KNOWN DRUG ALLERGIES. DISCHARGE MEDICATIONS: 1. Spironolactone 25 mg daily. 2. Torsemide 20 mg daily. 3. Aspirin 81 mg daily. 4. Eliquis 5 mg b.i.d., to be restarted later this week if hemoglobin stable. 5. Carvedilol dose reduced to 6.25 mg b.i.d. (from carvedilol 25 mg twice daily) 6. Colace 100 mg b.i.d. 7. MiraLAX 17 g daily. 8. Ferrous sulfate 325 mg b.i.d. The patient was evaluated on the day of discharge. Denies any new complaints. No abdominal pain, nausea, vomiting, diarrhea, hematemesis, or hematochezia reported. BRIEF HOSPITAL COURSE: The patient is a 73-year-old male with atrial fibrillation, on anticoagulation, presented to the emergency room with rectal bleeding along with left lower quadrant abdominal pain. Please refer to the history and physical for further details. The patient was admitted to the hospital with a diagnosis of acute diverticulitis involving the mid descending colon. His hemoglobin on admission was 11.4, that dropped gradually to 7.9 on the day of discharge. The patient did not have any rectal bleeding over the last 48 hours. The patient was evaluated by Gastroenterology Service. He gradually improved with conservative management. Due to relative hypotension, spironolactone, carvedilol and torsemide dose has been reduced. I updated Dr. Corcoran and Dr. Romero's office on the day of discharge. The patient understands the above plan of care. FINAL DIAGNOSES: 1. Acute diverticulitis with lower gastrointestinal bleeding. 2. Acute blood loss anemia. 3. Chronic atrial fibrillation, on Eliquis. Please note that Eliquis is currently on hold. 4. Obesity with a BMI of 32.6. 5. Chronic diastolic heart failure. 6. Hypertension. 7. Iron deficiency anemia. 8. Mildly abnormal LFTs. 9. History of colonic polyp. 10. History of hypertension. The patient understands the above plan of care. Job ID: [id number] MTDD
== END 2019-12-23 12:13 | disposition home or self-care (01) | DRG 378 ==
LOC: ERS 18:45 → T4-A 12-20 03:41
PROVIDERS: ADMIT Internal Medicine; ATTEND Internal Medicine
DX: K57.33 Diverticulitis of large intestine without perforation or abscess with bleeding (principal); D62 Acute posthemorrhagic anemia; I48.20 Chronic atrial fibrillation, unspecified; I50.32 Chronic diastolic (congestive) heart failure; Z20.828 Contact with and (suspected) exposure to other viral communicable diseases; E66.9 Obesity, unspecified; I11.0 Hypertensive heart disease with heart failure; D50.9 Iron deficiency anemia, unspecified; G47.33 Obstructive sleep apnea (adult) (pediatric); Z79.01 Long term (current) use of anticoagulants; Z68.32 Body mass index [BMI] 32.0-32.9, adult; Z87.891 Personal history of nicotine dependence; Z99.89 Dependence on other enabling machines and devices; Z79.82 Long term (current) use of aspirin; Z79.899 Other long term (current) drug therapy
CPT/HCPCS: 36415; 74177; 80048; 80053; 82728; 83540; 83550; 83735; 85025; 85610; 85730; 86850; 86900; 86901; 87635; 96365; C9113; J0295; J2543; J2916; J3490; Q9967; U0003

== ENCOUNTER 2020-01-02 08:29 | Outpatient (CLI) | payer MEDICARE, BC ==
--- NOTE | 2020-01-02 14:23 | MRI ---
MRI of thebrain: 01/02/2020 COMPARISON:None available HISTORY:Prior CT demonstrated a probable arachnoid cyst within the anterior cranial fossa on the righ t TECHNIQUE: Multiplanar multisequence MR imaging of thebrain without contrast Findings:There is T2 hyperintensity measuring 2.7 cm in AP dimension within the middle cranial fossa anteriorly on the right with slight medial deviation of the distal M1 and proximal M2 branches, evidence of an arachnoid cyst within the right middle cranial fossa. The axial gradient echo imaging demonstrates no evidence for acute hemorrhage. Numerous subcentimeter foci of increased T2 and FLAIR signal noted within the periventricular, deep, and subcortical white matter. Regional bone marrow signal intensity appears unremarkable on the sagittal T1-weighted imaging. The axial diffusion weighted imaging demonstrates no evidence for restricted diffusion/acute infarcti on. IMPRESSION:Small vessel disease without evidence for acute hemorrhage or infarction. MR findings cons istent with an arachnoid cyst within the middle cranial fossa on the right, as seen on prior CT examination.
== END 2020-01-02 08:30 | disposition home or self-care (01) ==
LOC: SCSMRI 08:29
PROVIDERS: ATTEND Internal Medicine Cardiovascular Disease
DX: G93.0 Cerebral cysts (principal); G93.89 Other specified disorders of brain
CPT/HCPCS: 70551

== ENCOUNTER 2020-02-11 08:50 | Outpatient (CLI) | payer MEDICARE, BC ==
--- NOTE | 2020-02-11 09:17 | RAD ---
CHEST 2 VIEWS: HISTORY: Dyspnea. COMPARISON: 12/11/2019. FINDINGS: The left layering pleural effusion is similar to slightly decreased in size. No significant right-si ded pleural effusion. Right upper lobe nodule is similar in appearance. Cardiac silhouette and medi astinal contours are similar. IMPRESSION: 1. Slight interval size decrease of the layering left pleural effusion. 2. Similar appearance right upper lobe pulmonary nodule which has likely not grown from the 01/10/[address] exam. POS: [facility]
== END 2020-02-11 08:51 | disposition home or self-care (01) ==
LOC: BICRAD 08:50
PROVIDERS: ATTEND Internal Medicine Critical Care Medicine
DX: R06.00 Dyspnea, unspecified (principal); J90 Pleural effusion, not elsewhere classified; R91.1 Solitary pulmonary nodule
CPT/HCPCS: 71046

== ENCOUNTER 2020-05-06 09:44 | Outpatient (CLI) | payer MEDICARE, BC ==
--- NOTE | 2020-05-06 10:14 | RAD ---
EXAM: Chest 2 views: HISTORY: Dyspnea COMPARISON: 02/11/2020 FINDINGS: There is a normal-sized cardiomediastinal silhouette. There is a stable 1.3 cm right upper lobe nodu le. There is no evidence of consolidation or pleural effusion. Degenerative changes are seen in the spine. IMPRESSION: Stable right upper lobe nodule.
== END 2020-05-06 09:45 | disposition home or self-care (01) ==
LOC: BICRAD 09:44
PROVIDERS: ATTEND Internal Medicine Critical Care Medicine
DX: R06.00 Dyspnea, unspecified (principal); R91.1 Solitary pulmonary nodule
CPT/HCPCS: 71046

== ENCOUNTER 2020-07-21 10:51 | Outpatient (CLI) | payer MEDICARE, BC | END 2020-07-21 10:52 | disposition home or self-care (01) | LOC: BICRAD 10:51 | PROVIDERS: ATTEND Internal Medicine Critical Care Medicine | DX: R06.00 Dyspnea, unspecified (principal); R91.1 Solitary pulmonary nodule; J98.4 Other disorders of lung | CPT/HCPCS: 71046 ==

== ENCOUNTER 2021-05-05 10:10 | Outpatient (CLI) | payer MEDICARE, BC | END 2021-05-05 10:11 | disposition home or self-care (01) | LOC: BICMAMMO 10:10 | PROVIDERS: ATTEND Family Medicine | DX: N64.4 Mastodynia (principal) | CPT/HCPCS: 77066; G0279 ==

== ENCOUNTER 2021-10-06 19:30 | Outpatient (CLI) | payer MEDICARE, BC | END 2021-10-06 19:31 | disposition home or self-care (01) | LOC: SLEEPLAB 19:30 | PROVIDERS: ATTEND Otolaryngology Otolaryngic Allergy | DX: G47.33 Obstructive sleep apnea (adult) (pediatric) (principal); R06.83 Snoring; G47.10 Hypersomnia, unspecified; I48.91 Unspecified atrial fibrillation; E66.9 Obesity, unspecified; Z68.31 Body mass index [BMI] 31.0-31.9, adult | CPT/HCPCS: 95810 ==

== ENCOUNTER 2022-03-25 04:57 | Observation (INO) | payer MEDICARE, BC ==
[2022-03-25 05:38] LABS: #Eosinphils 0.3 thou/uL (0.0-0.7); #Monocytes 0.7 thou/uL (0.11-0.59); #Neutrophils 4.3 thou/uL (1.40-6.50); %Basophils 0.6 % (0.0-1.0); %Eosinophils 4.2 % (0.0-10.0); %Lymphocytes 15.3 % (21.0-51.0); %Monocytes 10.9 % (0.0-10.0); %Neutrophils 69.1 % (42.0-75.0); Hemoglobin 14.3 g/dL (14.0-18.0); Mean Corpuscular HGB CONC 32.1 g/dL (32.0-36.0); Mean Corpuscular Hemoglobin 25.6 pg (27.0-31.0); Mean Corpuscular Volume 79.6 fl (78.0-98.0); Mean Platelet Volume 7.9 fL (7.4-10.4); Platelet Count 168 10x3/uL (130-400); RBC Distribution Width 13.7 % (11.5-14.5); Red Blood Cell (RBC) Count 5.58 mill/uL (4.70-6.10); White Blood Cell (WBC) Count 6.2 10x3/uL (4.8-10.8)
[2022-03-25 05:59] LABS: ALT (SGPT) Less than 7 U/L (8-55); AST (SGOT) 21 U/L (5-34); Albumin 3.8 g/dL (3.4-4.8); Alkaline Phosphatase 105 U/L (40-110); Anion Gap 13 mmol/L (10-20); BUN (Urea Nitrogen) 18 mg/dL (8.4-25.7); Bilirubin, Total 1.2 mg/dL (0.2-1.2); Calc. Creatinine Clearance 0 mL/min (70-130); Calcium 9.2 mg/dL (7.8-10.44); Carbon Dioxide 26 mmol/L (23-31); Chloride 103 mmol/L (98-107); Estimated GFR 67; Globulin 3.5 g/dL (2.4-3.5); Glucose 115 mg/dL (83-110); Potassium 4.6 mmol/L (3.5-5.1); Protein, Total 7.3 g/dL (5.8-8.1); Sodium 137 mmol/L (136-145)
[2022-03-25] MEDS ORDERED: Aspirin Chewable 81 MG TAB ONE (09:19)
[2022-03-25] MEDS ORDERED: Docusate 100 MG CAP PO PRN (11:20)
[2022-03-25] MEDS ORDERED: Torsemide 10 MG TAB PO SCH (11:45)
[2022-03-25] MEDS ORDERED: Torsemide 20 MG TAB PO SCH (12:00)
[2022-03-25 12:01] LABS: Troponin I 0.014 ng/mL (< 0.028)
[2022-03-25 14:14] VITALS: BMI 32.8
[2022-03-25] MEDS ORDERED: Pantoprazole 40 MG VIAL IVP SCH (15:30)
[2022-03-25 16:14] LABS: Hemoglobin 13.8 g/dL (14.0-18.0)
[2022-03-25] MEDS ORDERED: Nitroglycerin 0.4 MG TAB (25 Tab Bottle) SL PRN (17:15)
[2022-03-25] MEDS ORDERED: Ondansetron ODT 4 MG TAB PO PRN (17:18)
[2022-03-25] MEDS ORDERED: Acetaminophen 325 MG TAB PO PRN (17:18)
[2022-03-25] MEDS: Carvedilol 25 MG TAB PO SCH (20:33)
[2022-03-25] MEDS: Apixaban 5 MG TAB PO SCH (20:56)
[2022-03-25] MEDS ORDERED: Carvedilol 6.25 MG TAB PO SCH (21:00)
[2022-03-26 05:00] LABS: #Eosinphils 0.2 thou/uL (0.0-0.7); #Lymphocytes 1.3 thou/uL (1.20-3.40); #Monocytes 0.8 thou/uL (0.11-0.59); #Neutrophils 4.3 thou/uL (1.40-6.50); %Basophils 0.6 % (0.0-1.0); %Monocytes 12.4 % (0.0-10.0); Hemoglobin 12.2 g/dL (14.0-18.0); Mean Corpuscular HGB CONC 31.8 g/dL (32.0-36.0); Mean Corpuscular Hemoglobin 25.5 pg (27.0-31.0); Mean Corpuscular Volume 80.3 fl (78.0-98.0); Mean Platelet Volume 7.7 fL (7.4-10.4); Platelet Count 173 10x3/uL (130-400); RBC Distribution Width 13.5 % (11.5-14.5); Red Blood Cell (RBC) Count 4.78 mill/uL (4.70-6.10); White Blood Cell (WBC) Count 6.6 10x3/uL (4.8-10.8)
[2022-03-26 05:27] LABS: Anion Gap 12 mmol/L (10-20); BUN (Urea Nitrogen) 22 mg/dL (8.4-25.7); Calc. Creatinine Clearance 73 mL/min (70-130); Calcium 8.8 mg/dL (7.8-10.44); Carbon Dioxide 23 mmol/L (23-31); Chloride 104 mmol/L (98-107); Estimated GFR 64; Glucose 118 mg/dL (83-110); Magnesium 1.7 mg/dL (1.6-2.6); Potassium 4.5 mmol/L (3.5-5.1); Sodium 134 mmol/L (136-145)
[2022-03-26] MEDS ORDERED: Torsemide 20 MG TAB PO SCH (09:00)
[2022-03-26] MEDS ORDERED: Torsemide 10 MG TAB PO SCH (09:00)
[2022-03-26] MEDS: Carvedilol 25 MG TAB PO SCH ×2 (11:40→20:59)
[2022-03-26] MEDS: Spironolactone 25 MG TAB PO SCH (11:40)
[2022-03-26] MEDS: Apixaban 5 MG TAB PO SCH (11:42)
[2022-03-26 12:04] LABS: Hemoglobin 13.4 g/dL (14.0-18.0)
[2022-03-26] MEDS ORDERED: ADENOSINE 60 MG/20 ML VIAL ONE (13:50)
[2022-03-26] MEDS: Gabapentin 100 MG CAP PO SCH ×2 (14:41→20:59)
[2022-03-26 20:35] LABS: Hemoglobin 12.2 g/dL (14.0-18.0)
[2022-03-26] MEDS: valACYclovir 500 MG TAB PO SCH (20:59)
[2022-03-27 05:15] LABS: #Eosinphils 0.3 thou/uL (0.0-0.7); #Lymphocytes 1.2 thou/uL (1.20-3.40); #Monocytes 0.8 thou/uL (0.11-0.59); #Neutrophils 4.3 thou/uL (1.40-6.50); %Basophils 0.1 % (0.0-1.0); %Lymphocytes 18.6 % (21.0-51.0); %Monocytes 11.7 % (0.0-10.0); %Neutrophils 65.7 % (42.0-75.0); Hemoglobin 12.9 g/dL (14.0-18.0); Mean Corpuscular HGB CONC 32.6 g/dL (32.0-36.0); Mean Corpuscular Hemoglobin 25.9 pg (27.0-31.0); Mean Corpuscular Volume 79.2 fl (78.0-98.0); Platelet Count 173 10x3/uL (130-400); RBC Distribution Width 13.5 % (11.5-14.5); Red Blood Cell (RBC) Count 4.98 mill/uL (4.70-6.10); White Blood Cell (WBC) Count 6.5 10x3/uL (4.8-10.8)
[2022-03-27 05:36] LABS: Phosphorus 2.8 mg/dL (2.3-4.7)
[2022-03-27 05:43] LABS: Anion Gap 16 mmol/L (10-20); BUN (Urea Nitrogen) 30 mg/dL (8.4-25.7); Calc. Creatinine Clearance 64 mL/min (70-130); Calcium 9.1 mg/dL (7.8-10.44); Carbon Dioxide 22 mmol/L (23-31); Chloride 102 mmol/L (98-107); Estimated GFR 55; Glucose 118 mg/dL (83-110); Magnesium 1.9 mg/dL (1.6-2.6); Potassium 4.9 mmol/L (3.5-5.1); Sodium 135 mmol/L (136-145)
[2022-03-27] MEDS: valACYclovir 500 MG TAB PO SCH (06:10)
[2022-03-27] MEDS: Gabapentin 100 MG CAP PO SCH (07:31)
[2022-03-27] MEDS: Spironolactone 25 MG TAB PO SCH (07:32)
[2022-03-27] MEDS: Carvedilol 25 MG TAB PO SCH (07:33)
[2022-03-27 07:57] VITALS: BP 118/66; TEMP 97.5
== END 2022-03-27 09:50 | disposition home or self-care (01) ==
LOC: ERS 04:57 → ERHOLD 07:45 → 2SW 12:37
PROVIDERS: ADMIT Internal Medicine; ATTEND Internal Medicine
DX: B02.29 Other postherpetic nervous system involvement (principal); K57.31 Diverticulosis of large intestine without perforation or abscess with bleeding; I48.20 Chronic atrial fibrillation, unspecified; I11.0 Hypertensive heart disease with heart failure; I50.32 Chronic diastolic (congestive) heart failure; G47.33 Obstructive sleep apnea (adult) (pediatric); R91.1 Solitary pulmonary nodule; I48.92 Unspecified atrial flutter; Z86.010 Personal history of colon polyps; Z87.891 Personal history of nicotine dependence; Z79.01 Long term (current) use of anticoagulants; Z79.899 Other long term (current) drug therapy; Z20.822 Contact with and (suspected) exposure to COVID-19
CPT/HCPCS: 71045; 71275; 74176; 78452; 80048 ×2; 80053; 83735 ×2; 83880; 84100; 84443; 84484 ×2; 85014 ×2; 85018 ×2; 85025 ×3; 93005; 93017; 94760 ×2; 99285; A9500; U0003; U0005; 36415; 82274; 93010; C9113; J0153

== ENCOUNTER 2023-12-19 09:18 | Inpatient (IN) | payer BC, MEDICARE ==
[2023-12-19 10:52] LABS: #Basophils 0.07 10x3/uL (0.0-0.2); %Basophils 0.7 % (0.0-1.0); %Eosinophils 1.2 % (0.0-10.0); %Lymphocytes 15.7 % (21.0-51.0); %Monocytes 5.4 % (0.0-10.0); %Neutrophils 76.2 % (42.0-75.0); Hematocrit 35.2 % (42.0-52.0); Hemoglobin 10.5 g/dL (14.0-18.0); Mean Corpuscular HGB CONC 29.8 g/dL (32.0-36.0); Mean Corpuscular Hemoglobin 23.8 pg (27.0-31.0); Mean Corpuscular Volume 79.6 fL (78.0-98.0); Platelet Count 238 10x3/uL (130-400); RBC Distribution Width 17.2 % (11.5-14.5); Red Blood Cell (RBC) Count 4.42 mill/uL (4.70-6.10)
[2023-12-19 11:13] LABS: INR-International Normal Ratio 1.4
[2023-12-19 11:14] LABS: ALT (SGPT) 5 U/L (8-55); AST (SGOT) 16 U/L (5-34); Albumin 3.1 g/dL (3.4-4.8); Alkaline Phosphatase 97 U/L (40-110); Anion Gap 14 mmol/L (10-20); BUN (Urea Nitrogen) 37 mg/dL (8.4-25.7); Bilirubin, Total 1.2 mg/dL (0.2-1.2); Calc. Creatinine Clearance 0 mL/min (70-130); Calcium 8.8 mg/dL (7.8-10.44); Carbon Dioxide 20 mmol/L (23-31); Chloride 110 mmol/L (98-107); Estimated GFR 70; Globulin 3.2 g/dL (2.4-3.5); Glucose 202 mg/dL (83-110); Potassium 5.4 mmol/L (3.5-5.1); Protein, Total 6.3 g/dL (5.8-8.1); Sodium 139 mmol/L (136-145)
[2023-12-19 11:37] LABS: Troponin I 0.025 ng/mL (< 0.028)
[2023-12-19] MEDS ORDERED: Metoprolol Tartrate 5 MG (5 mL) VIAL ONE (11:47)
[2023-12-19] MEDS ORDERED: Acetaminophen 650 MG Suppository PR PRN (12:57)
[2023-12-19] MEDS ORDERED: Ondansetron ODT 4 MG TAB PO PRN (12:57)
[2023-12-19] MEDS ORDERED: Ondansetron PF 4 MG/2 ML Vial IVP PRN (12:57)
[2023-12-19 15:27] VITALS: BMI 29.0
[2023-12-19] MEDS: Carvedilol 3.125 MG TAB PO SCH (16:44)
[2023-12-19 18:29] LABS: Hematocrit 32.2 % (42.0-52.0); Hemoglobin 9.6 g/dL (14.0-18.0)
[2023-12-19 18:57] LABS: Anion Gap 14 mmol/L (10-20); BUN (Urea Nitrogen) 39 mg/dL (8.4-25.7); Calc. Creatinine Clearance 73 mL/min (70-130); Calcium 8.7 mg/dL (7.8-10.44); Carbon Dioxide 21 mmol/L (23-31); Chloride 111 mmol/L (98-107); Estimated GFR 77; Glucose 131 mg/dL (83-110); Potassium 5.3 mmol/L (3.5-5.1); Sodium 141 mmol/L (136-145)
[2023-12-20 04:04] LABS: #Basophils 0.04 10x3/uL (0.0-0.2); %Basophils 0.5 % (0.0-1.0); %Eosinophils 1.4 % (0.0-10.0); %Lymphocytes 22.7 % (21.0-51.0); %Monocytes 10.5 % (0.0-10.0); %Neutrophils 64.2 % (42.0-75.0); Hematocrit 27.7 % (42.0-52.0); Hemoglobin 8.3 g/dL (14.0-18.0); Mean Corpuscular Hemoglobin 23.4 pg (27.0-31.0); Mean Corpuscular Volume 78.2 fL (78.0-98.0); Mean Platelet Volume 10.2 fL (7.4-10.4); Platelet Count 203 10x3/uL (130-400); RBC Distribution Width 17.2 % (11.5-14.5); Red Blood Cell (RBC) Count 3.54 mill/uL (4.70-6.10)
[2023-12-20 04:52] LABS: Anion Gap 11 mmol/L (10-20); BUN (Urea Nitrogen) 40 mg/dL (8.4-25.7); Calc. Creatinine Clearance 72 mL/min (70-130); Calcium 8.4 mg/dL (7.8-10.44); Carbon Dioxide 20 mmol/L (23-31); Chloride 112 mmol/L (98-107); Estimated GFR 75; Glucose 114 mg/dL (83-110); Potassium 4.4 mmol/L (3.5-5.1); Sodium 139 mmol/L (136-145)
[2023-12-20] MEDS: Acetaminophen 325 MG TAB PO PRN (11:43)
[2023-12-20] MEDS: Rosuvastatin 5 MG TAB PO SCH (19:57)
[2023-12-20] MEDS: Carvedilol 6.25 MG TAB PO SCH (19:57)
[2023-12-21 04:49] LABS: Hematocrit 24.3 % (42.0-52.0); Hemoglobin 7.1 g/dL (14.0-18.0)
[2023-12-21 05:10] LABS: Anion Gap 11 mmol/L (10-20); BUN (Urea Nitrogen) 34 mg/dL (8.4-25.7); Calc. Creatinine Clearance 77 mL/min (70-130); Carbon Dioxide 21 mmol/L (23-31); Chloride 110 mmol/L (98-107); Estimated GFR 81; Glucose 120 mg/dL (83-110); Potassium 3.8 mmol/L (3.5-5.1); Sodium 138 mmol/L (136-145)
[2023-12-21] MEDS: Spironolactone 25 MG TAB PO SCH (09:12)
[2023-12-21] MEDS: Empagliflozin 10 MG TAB PO SCH (09:13)
[2023-12-21] MEDS: Polyethylene Glycol 3350 17 GM Packet PO PRN (13:02)
[2023-12-22 03:23] LABS: Anion Gap 10 mmol/L (10-20); BUN (Urea Nitrogen) 23 mg/dL (8.4-25.7); Calc. Creatinine Clearance 87 mL/min (70-130); Calcium 8.3 mg/dL (7.8-10.44); Carbon Dioxide 20 mmol/L (23-31); Chloride 111 mmol/L (98-107); Estimated GFR 89; Glucose 109 mg/dL (83-110); Magnesium 2.1 mg/dL (1.6-2.6); Sodium 137 mmol/L (136-145)
[2023-12-22 07:46] VITALS: TEMP 97.5
[2023-12-22 11:32] VITALS: BP 120/71
[2023-12-22] MEDS ORDERED: Furosemide 20 MG (2 mL) VIAL SLOW IVP SCH (14:00)
== END 2023-12-22 13:40 | disposition home or self-care (01) | DRG 378 ==
LOC: ERS 09:18 → 2SW 15:07 → OBSVTOIN 12-20 15:06
PROVIDERS: ADMIT Internal Medicine; ATTEND Family Medicine
PROC: 30233N1 Transfusion of Nonautologous Red Blood Cells into Peripheral Vein, Percutaneous Approach (ICD-10-PCS; principal; 2023-12-21)
DX: K57.31 Diverticulosis of large intestine without perforation or abscess with bleeding (principal); D62 Acute posthemorrhagic anemia; I48.20 Chronic atrial fibrillation, unspecified; I50.32 Chronic diastolic (congestive) heart failure; E87.5 Hyperkalemia; I11.0 Hypertensive heart disease with heart failure; D50.9 Iron deficiency anemia, unspecified; G47.33 Obstructive sleep apnea (adult) (pediatric); Z79.01 Long term (current) use of anticoagulants; Z87.891 Personal history of nicotine dependence; Z79.899 Other long term (current) drug therapy; Z96.653 Presence of artificial knee joint, bilateral
CPT/HCPCS: 36415; 36430; 80048; 80053; 82728; 83540; 83735; 84484; 85014; 85018; 85025; 85046; 85610; 85730; 86850; 86900; 86901; 93005; P9016

== ENCOUNTER 2024-02-07 09:30 | Inpatient (IN) | payer MEDICARE ==
[2024-02-14] MEDS ORDERED: Heparin 10,000 UNITS/ 10 ML VIAL ONE (09:57)
[2024-02-14] MEDS ORDERED: Protamine Sulfate 50 MG/5 ML VIAL ONE (09:57)
[2024-02-14] MEDS ORDERED: CEFAZOLIN 2 GM VIAL ONE (09:57)
[2024-02-14] MEDS ORDERED: Rocuronium Bromide 10 MG/ML (10ML VIAL) ONE (11:42)
[2024-02-14] MEDS ORDERED: fentaNYL 50 mcg/mL 1 mL Vial ONE ×2 (11:43)
[2024-02-14] MEDS ORDERED: PROPOFOL 20 ML ONE (11:43)
[2024-02-14] MEDS ORDERED: Lidocaine 2% PF 100 mg/5 ml Syringe ONE (11:43)
[2024-02-14] MEDS ORDERED: Metoprolol Tartrate 5 MG (5 mL) VIAL ONE (11:59)
[2024-02-14] MEDS ORDERED: Vasopressin 20 UNITS/ML VIAL ONE (12:03)
[2024-02-14] MEDS ORDERED: SUGAMMADEX SODIUM 200 MG/2 ML VIAL ONE (12:10)
[2024-02-14] MEDS ORDERED: Esmolol 100 MG/10 ML VIAL ONE (12:42)
[2024-02-14] MEDS ORDERED: PHENYLEPHRINE-NS 100 MCG/ML 10 ML SYRINGE ONE (12:43)
[2024-02-14] MEDS ORDERED: Ondansetron PF 4 MG/2 ML Vial ONE (12:46)
[2024-02-14] MEDS ORDERED: Digoxin 0.5 MG/2 ML AMP ONE (14:04)
== END 2024-02-14 18:14 | disposition home or self-care (01) | DRG 274 ==
LOC: SURG A 02-14 08:45 → EDSTATUS 02-14 09:30
PROVIDERS: ADMIT Internal Medicine Cardiovascular Disease; ATTEND Internal Medicine Cardiovascular Disease
PROC: 02L73DK Occlusion of Left Atrial Appendage with Intraluminal Device, Percutaneous Approach (ICD-10-PCS; principal; 2024-02-14)
PROC: B24BZZ4 Ultrasonography of Heart with Aorta, Transesophageal (ICD-10-PCS; 2024-02-14)
DX: I48.11 Longstanding persistent atrial fibrillation (principal); Z00.6 Encounter for examination for normal comparison and control in clinical research program; I10 Essential (primary) hypertension; E78.00 Pure hypercholesterolemia, unspecified; Z79.01 Long term (current) use of anticoagulants; Z79.899 Other long term (current) drug therapy; D50.0 Iron deficiency anemia secondary to blood loss (chronic); Z87.891 Personal history of nicotine dependence
CPT/HCPCS: 33340; 85347; 86850; 86900; 86901; 93306; 93355; C1759; C1760; C1817; C1894; J1160; J1644; J2003; J2405; J2704; J2720; J3010

== ENCOUNTER → 2024-02-07 | Outpatient (CLI) | payer MEDICARE | LOC: LABBT 09:16 | PROVIDERS: ATTEND Internal Medicine Cardiovascular Disease | DX: Z01.812 Encounter for preprocedural laboratory examination (principal); I48.19 Other persistent atrial fibrillation | CPT/HCPCS: 86850; 86900; 86901 ==

== ENCOUNTER 2024-03-29 11:18 | Outpatient (CLI) | payer MEDICARE ==
[2024-03-29 13:04] LABS: Anion Gap 13 mmol/L (10-20); BUN (Urea Nitrogen) 25 mg/dL (8.4-25.7); Calc. Creatinine Clearance 0 mL/min (70-130); Calcium 9.7 mg/dL (7.8-10.44); Carbon Dioxide 29 mmol/L (23-31); Chloride 101 mmol/L (98-107); Estimated GFR 71; Glucose 90 mg/dL (83-110); Potassium 4.9 mmol/L (3.5-5.1); Sodium 138 mmol/L (136-145)
[2024-03-29 14:00] LABS: #Basophils 0.04 10x3/uL (0.0-0.2); %Basophils 0.6 % (0.0-1.0); %Eosinophils 2.4 % (0.0-10.0); %Lymphocytes 18.4 % (21.0-51.0); %Monocytes 11.2 % (0.0-10.0); Burr Cells SLIGHT = 2-5 cells HPF (0-1); Hematocrit 47.7 % (42.0-52.0); Hemoglobin 14.1 g/dL (14.0-18.0); Mean Corpuscular HGB CONC 29.6 g/dL (32.0-36.0); Mean Corpuscular Hemoglobin 22.1 pg (27.0-31.0); Mean Corpuscular Volume 74.9 fL (78.0-98.0); Mean Platelet Volume 10.2 fL (7.4-10.4); Ovalocytes SLIGHT = 2-5 cells HPF (0-1); Platelet Adequacy Comment Platelets Normal; Platelet Count 230 10x3/uL (130-400); Polychromasia SLIGHT = 2-3 cells HPF (0-2); RBC Distribution Width 17.2 % (11.5-14.5); Red Blood Cell (RBC) Count 6.37 mill/uL (4.70-6.10); Tear Drops SLIGHT = 2-5 cells HPF (0-1)
[2024-03-29 17:46] LABS: INR-International Normal Ratio 1.2; PTT 37.9 sec (22.9-36.1); Prothrombin Time 15.1 sec (12.0-14.7)
== END 2024-03-29 11:19 | disposition home or self-care (01) ==
LOC: LABBT 11:18
PROVIDERS: ATTEND Internal Medicine Cardiovascular Disease
DX: Z01.812 Encounter for preprocedural laboratory examination (principal); I48.19 Other persistent atrial fibrillation
CPT/HCPCS: 80048; 85025; 85610; 85730

== ENCOUNTER 2024-04-05 06:00 | Day surgery (SDC) | payer MEDICARE ==
[2024-03-29 11:38] VITALS: BMI 29.5
[2024-04-05] MEDS ORDERED: PHENYLEPHRINE-NS 100 MCG/ML 10 ML SYRINGE ONE (07:01)
[2024-04-05] MEDS ORDERED: PROPOFOL 200 MG/20 ML VIAL ONE (07:46)
[2024-04-05] MEDS ORDERED: Lidocaine 1% PF 5 ML VIAL ONE (07:46)
== END 2024-04-05 09:21 | disposition home or self-care (01) ==
LOC: SDC 06:00
PROVIDERS: ATTEND Internal Medicine Cardiovascular Disease
PROC: B24BZZ4 Ultrasonography of Heart with Aorta, Transesophageal (ICD-10-PCS; principal; 2024-04-05)
DX: I48.91 Unspecified atrial fibrillation (principal); Z96.653 Presence of artificial knee joint, bilateral; Z95.818 Presence of other cardiac implants and grafts; Z98.890 Other specified postprocedural states; Z79.01 Long term (current) use of anticoagulants; Z79.899 Other long term (current) drug therapy
CPT/HCPCS: 93312